=== PATIENT | male | born 1985 | race Caucasian/White ===

== ENCOUNTER 2019-02-20 19:29 | Emergency (ER) | payer OTHER, SELFPAY ==
--- NOTE | 2019-02-20 19:41 | DI.RAD.S_ITS ---
PROCEDURE: XR CHEST 1V INDICATIONS: chest pain TECHNIQUE: One view of the chest was acquired. COMPARISON: None. FINDINGS: Surgical changes and devices: None. Lungs and pleura: Lungs are clear. No pleural effusions or pneumothorax. Mediastinum: Mediastinal contours appear normal. Heart size is enlarged. Bones and chest wall: No suspicious bony lesions. Overlying soft tissues appear unremarkable. IMPRESSION: 1. No acute cardiopulmonary abnormality. 2. Cardiomegaly. Dictated by: Juan Thompson M.D. on 02/20/2019 at 20:07 Approved by: Juan Thompson M.D. on 02/20/2019 at 20:08
[2019-02-20 19:45] VITALS: BP 136/99; PULSE 57; RESP 12; TEMP 36.6; O2SAT 100; BMI 29.5
--- NOTE | 2019-02-20 20:09 | PC.NURSE ---
Pt has history of PVC's and wore a holter monitor and had echo in the past. States this feels different. I am almost certain I had a panic attack. States he has been dealing with a lot of stress lately and this episode hit him very suddenly while grocery shopping. Feels almost 100% improvement of symptoms. 0.5/10 chest tightness.
[2019-02-20 20:11] LABS: Add Manual Diff / Slide Review NO; Basophils Absolute Auto 0 /uL (0-100); Basophils Percent Auto 0.2 % (0-2); Eosinophils Absolute Auto 100 /uL (0-450); Eosinophils Percent Auto 1.8 % (2-4); Hematocrit 40.8 % (41-53); Hemoglobin 14.2 g/dL (13.5-17.5); Lymphocytes Absolute Auto 2500 /uL (1100-4500); Mean Corpuscular HGB Conc 34.8 % (30-36); Mean Corpuscular Hemoglobin 29.6 PG (26-34); Mean Corpuscular Volume 84.8 fL (80-100); Monocytes Absolute Auto 700 /uL (0-900); Monocytes Percent Auto 9.9 % (3-14); Neutrophils Absolute Auto 4000 /uL (1500-7000); Neutrophils Percent Auto 54.1 % (50-75); Platelet Count 167 X10^3/uL (150-400); Red Blood Cell Count 4.81 X10^6/uL (4.5-5.9); Red Cell Distribution Width 12.7 % (11.6-14.8); White Blood Cell Count 7.4 X10^3/uL (4.5-11.0)
[2019-02-20 20:15] LABS: INR 1.1 (0.9-1.3); Prothrombin Time 12.3 SECONDS (10.1-12.7)
[2019-02-20 20:18] LABS: PTT Partial Thromboplastin Tim 32 SECONDS (26.4-36.2)
[2019-02-20 20:20] LABS: Alanine Aminotransferase 37 IU/L (21-72); Albumin 4.6 g/dL (3.5-5.0); Albumin Globulin Ratio 1.6 (1.0-2.8); Alkaline Phosphatase 68 U/L (38-126); Aspartate Aminotransferase 39 IU/L (17-59); BUN Creatinine Ratio 18.9 (6-22); Bilirubin Total 1.5 mg/dL (0.2-1.3); Blood Urea Nitrogen 17 mg/dL (9-20); Calcium 9.5 mg/dL (8.4-10.2); Carbon Dioxide 25 mmol/L (22-32); Chloride 103 mmol/L (98-107); Creatine Kinase 501 U/L (55-170); Estimated Glomerular Filt Rate > 60.0 mL/min (>60); Globulin 2.9 g/dL (1.7-4.1); Glucose 83 mg/dL (70-100); HEMOLYSIS < 15 (0-50); Lipase 146 U/L (23-300); Potassium 3.6 mmol/L (3.4-5.1); Sodium 139 mmol/L (137-145); Total Protein 7.5 g/dL (6.3-8.2)
[2019-02-20 20:30] VITALS: BP 122/84; PULSE 63; RESP 22; O2SAT 95
[2019-02-20 20:31] LABS: Troponin I < 0.012 ng/mL (0.01-0.034)
[2019-02-20 20:35] LABS: CKMB % Relative Index 0.5 % (1.5-5.0); Creatine Kinase MB 2.33 ng/mL (<2.37)
--- NOTE | 2019-02-20 20:52 | ED_ITS ---
HPI - Chest Pain General Chief Complaint: Chest Pain Stated Complaint: CHEST PAIN Time Seen by Provider: 02/20/19 20:51 Source: patient Mode of arrival: Ambulatory Limitations: no limitations History of Present Illness HPI narrative: The patient was walking through a grocery store earlier today, if no obvious reason he developed sudden fear. He developed chest pain with dyspnea and diaphoresis. There was no dizziness or near-syncope type episode. He had nausea, no emesis. He has no history of cardiac disease. He has no history of asthma. He has no history of anxiety. He will be discharged from the [facility] in 3 days. He notes there may be a reason to feel anxious, he did not elaborate further. He denies recent illness. He is on no significant medications. He does not smoke tobacco, or use drugs. He does drink a little alcohol. He thinks there is a family history depression/anxiety. He feels well at this time. Review of Systems Review of Systems ROS Unobtainable: All systems reviewed & are unremarkable except as noted in HPI and below Constitutional Constitutional: Denies chills, Denies fever(s), Denies lethargy and Denies weakness Eyes Eyes: Denies change in vision ENT Ears, Nose, Mouth, and Throat: Denies change in voice and Denies neck pain Cardiovascular Cardiovascular: Reports chest pain, Denies irregular heart rhythm, Denies lightheadedness, Denies palpitations, Reports dyspnea and Denies orthopnea Respiratory Respiratory: Denies cough, Reports dyspnea and Denies wheezing Gastrointestinal Gastrointestinal: Denies abdominal pain, Denies change in bowel habits, Denies diarrhea, Reports nausea and Denies vomiting Musculoskeletal Musculoskeletal: Denies back pain and Denies neck pain Integumentary/Breasts Skin/Breast: Denies rash Neurologic Neurologic: Denies confusion and Denies weakness Psychiatric Psychiatric: Reports anxiety, Denies confusion and Denies depression Endocrine Endocrine: Denies palpitations Allergic/Immunologic Allergic/Immunologic: Denies wheezing [facility] Medical History (Updated 02/20/19 @ 21:14 by Dwayne Coleman MD) No acute medical problems (Acute) Surgical History (Updated 02/20/19 @ 21:08 by Dwayne Coleman MD) No pertinent past surgical history (Acute) Social History (Updated 02/20/19 @ 21:09 by Dwayne Coleman MD) Smoking Status: Former smoker alcohol intake: current substance use type: does not use Social History (Updated 02/20/19 @ 21:09 by Dwayne Coleman MD) Smoking Status: Former smoker alcohol intake: current substance use type: does not use Exam Initial Vital Signs Initial Vital Signs: Vital Signs Temperature 97.8 F 02/20/19 19:45 Pulse Rate 57 L 02/20/19 19:45 Respiratory Rate 12 02/20/19 19:45 Blood Pressure 136/99 H 02/20/19 19:45 Pulse Oximetry 100 02/20/19 19:45 Const General: cooperative and well developed Nutritional Appearance: well nourished Orientation: alert, awake, oriented x3 and not confused Other: No current anxiety. HENMT Head: normal to inspection, normocephalic and atraumatic Eyes Conjunctivae: conjunctivae normal Neck Neck: No JVD Chest Chest: normal palpation of entire chest wall Resp Effort & Inspection: normal respiratory effort and able to speak in complete sentences Auscultation: clear to auscultation bilaterally, no rales, no rhonchi and no wheezes Cardio Palpation: normal PMI Rate: regular rate Rhythm: regular rhythm Heart Sounds: S1 normal, S2 normal, no click, no gallops, no murmurs and no rubs GI Inspection: non-distended Palpation: soft, no hepatosplenomegaly, No guarding and No tender Auscultation: normal bowel sounds Back/Spine/Pelvis Back: normal to inspection Skin General: no rashes or lesions noted Neuro General: alert, oriented x3, gait normal and no focal motor deficits Speech: speech normal Extrem General: full ROM and no pedal edema Psych Appearance: well kempt Mental Status: mental status grossly normal Attitude: cooperative Thought Content: normal Judgment: judgment good Course Orders Ordered: ED Orders 02/20/19 19:33 EKG-12 Lead Stat 02/20/19 19:41 XR chest 1V Stat 02/20/19 20:00 Complete Blood Count AUTO DIFF Stat Comprehensive Metabolic Panel Stat Lipase Stat Partial Thromboplastin Time Stat Prothrombin Time INR Stat Troponin & CK Cardiac Panel Stat Vital Signs Vital signs: Vital Signs - 8 hr 02/20/19 19:45 02/20/19 20:30 Temperature 97.8 F Pulse Rate 57 L 63 Respiratory Rate 12 22 Blood Pressure 136/99 H Blood Pressure [Right Arm] 122/84 Pulse Oximetry 100 95 MDM - Chest Pain Lab Data Result diagrams: 02/20/19 20:00 02/20/19 20:00 Labs: Lab Results 02/20/19 02/20/19 02/20/19 Range/Units 20:00 20:00 20:00 WBC 7.4 (4.5-11.0) X10^3/uL RBC 4.81 (4.5-5.9) X10^6/uL Hgb 14.2 (13.5-17.5) g/dL Hct 40.8 L (41-53) % MCV 84.8 (80-100) fL MCH 29.6 (26-34) PG MCHC 34.8 (30-36) % RDW 12.7 (11.6-14.8) % Plt Count 167 (150-400) X10^3/uL Neut % (Auto) 54.1 (50-75) % Lymph % (Auto) 34.0 (25-40) % Fulton % (Auto) 9.9 (3-14) % Eos % (Auto) 1.8 L (2-4) % Baso % (Auto) 0.2 (0-2) % Neut # (Auto) 4000 (6988-8629) /uL Lymph # (Auto) 2500 (7265-3954) /uL Fulton # (Auto) 700 (0-900) /uL Eos # (Auto) 100 (0-450) /uL Baso # (Auto) 0 (0-100) /uL PT 12.3 (10.1-12.7) SECONDS INR 1.1 (0.9-1.3) APTT 32 (26.4-36.2) SECONDS Sodium 139 (137-145) mmol/L Potassium 3.6 (3.4-5.1) mmol/L Chloride 103 (98-107) mmol/L Carbon Dioxide 25 (22-32) mmol/L BUN 17 (9-20) mg/dL Creatinine 0.90 (0.66-1.25) mg/dL Estimated GFR > 60.0 (>60) mL/min BUN/Creatinine Ratio 18.9 (6-22) Glucose 83 (70-100) mg/dL Calcium 9.5 (8.4-10.2) mg/dL Total Bilirubin 1.5 H (0.2-1.3) mg/dL AST 39 (17-59) IU/L ALT 37 (21-72) IU/L Alkaline Phosphatase 68 (38-126) U/L Total Creatine Kinase 501 H (55-170) U/L CK-MB (CK-2) 2.33 (<2.37) ng/mL CK-MB (CK-2) Rel Index 0.5 L (1.5-5.0) % Troponin I < 0.012 (0.01-0.034) ng/mL Total Protein 7.5 (6.3-8.2) g/dL Albumin 4.6 (3.5-5.0) g/dL Globulin 2.9 (1.7-4.1) g/dL Albumin/Globulin Ratio 1.6 (1.0-2.8) Lipase 146 (23-300) U/L Point of Care Testing Glucose POC 90 Imaging Data Chest x-ray: Radiologist's impression: 77 Dwayne Coleman MD Find Patient Imaging - Jignesh Zaldivar 34 1985 ACTIVITY DATE EXAM STATUS AUTHOR 02/20/19 19:41 [place] [address] XRay Report Signed Patient: Jignesh Zaldivar [facility]#: [id number] : 1985Acct:[id number] Age/Sex: 34 / MDate of Service: 02/20/19 Loc: ED Accession Number: [id number] Procedure: XR chest 1V Ordering Provider: Dwayne Coleman MD PROCEDURE: XR CHEST 1V INDICATIONS: chest pain TECHNIQUE: One view of the chest was acquired. COMPARISON: None. FINDINGS: Surgical changes and devices: None. Lungs and pleura: Lungs are clear. No pleural effusions or pneumothorax. Mediastinum: Mediastinal contours appear normal. Heart size is enlarged. Bones and chest wall: No suspicious bony lesions. Overlying soft tissues appear unremarkable. IMPRESSION: 1. No acute cardiopulmonary abnormality. 2. Cardiomegaly. Dictated by: Juan Thompson M.D. on 02/20/2019 at 20:07 Approved by: Juan Thompson M.D. on 02/20/2019 at 20:08 ECG Data Attestation: I personally reviewed and interpreted this ECG as follows: Interpretation: Sinus bradycardia rate 48 beats per minute. Incomplete RBBB. No ectopy. No acute ST T wave changes. No acute findings. Discharge Plan Departure Patient Disposition: Home Clinical Impression: Anxiety Instructions: DI for Anxiety -- Adult Activity Restrictions/Additional Instructions: From the evaluation there is no evidence of cardiac, respiratory, or other acute medical problem. The history and presentation is most consistent with anxiety. If you have ongoing issues anxiety, follow up with her own doctor for ongoing care. Return to the ER as needed.
[2019-02-20 21:23] VITALS: BP 121/84; PULSE 50; RESP 19; O2SAT 98
== END 2019-02-20 21:24 | disposition home or self-care (01) ==
PROVIDERS: Emergency Provider Emergency Medicine
DX: F41.9 Anxiety disorder, unspecified (principal)
CPT/HCPCS: 36415; 71045; 80053; 82550; 82553; 82962; 83690; 84484; 85025; 85610; 85730; 93005; 93010; 99283; 99285

== ENCOUNTER → 2019-03-30 07:47 | Outpatient (CLI) | payer OTHER, SELFPAY ==
--- NOTE | 2019-03-30 | DI.ECHO.S_ITS ---
[facility]---------+ [facility] +---------+ : : [address] : : : : [id number] : : : : Phone: [phone] Echocardiogram Report + + :Name: DULCE FAJARDO Study Date: 03/30/2019 Height: 74 in : :[facility] Weight: 230 lb : : Gender: Male BSA: 2.3 m2 : :: 1985 Age: 34 yrs BP: 110/70 mmHg: :Reason For Study: QTC : : Performed By: Magalis Woodson : :Referring: JANES FOSS : + + Interpretation Summary The left ventricle is mildly dilated. Left ventricular ejection fraction is estimated to be 50%. There are no focal wall motion abnormalities. Diastolic parameters suggest probable normal left ventricular diastolic function and normal filling pressures. The right ventricle is mildly dilated. Right ventricular systolic function is borderline reduced. The right ventricular systolic pressure is estimated to be at least 23 mmHg based on an estimated right atrial pressure of 8 mm Hg. Borderline left atrial enlargement. The right atrium is mildly dilated. There is no significant valvular heart disease. The aortic root is normal size. Procedure: A two-dimensional transthoracic echocardiogram with color flow and Doppler was performed. The study quality was technically good. There is no prior echocardiogram noted for this patient. The heart rate ranged between 40- 53 bpm during the study. Left Ventricle: The left ventricle is mildly dilated. There is normal left ventricular wall thickness. Left ventricular ejection fraction is estimated to be 50%. There are no focal wall motion abnormalities. Diastolic parameters suggest probable normal left ventricular diastolic function and normal filling pressures. Right Ventricle: The right ventricle is mildly dilated. Right ventricular systolic function is borderline reduced. Atria: Borderline left atrial enlargement. The right atrium is mildly dilated. The interatrial septum is intact with no evidence for an atrial septal defect. Mitral Valve: The mitral valve is normal in structure and function. There is no mitral regurgitation noted. Aortic Valve: The aortic valve is trileaflet. The aortic valve opens well. No aortic regurgitation is present. Tricuspid Valve: The tricuspid valve is normal in structure and function. There is trace tricuspid regurgitation. The right ventricular systolic pressure is estimated to be at least 23 mmHg based on an estimated right atrial pressure of 8 mm Hg. Pulmonic Valve: The pulmonic valve is normal in structure and function. There is trace pulmonic regurgitation. There is no significant valvular heart disease. Great Vessels: The aortic root is normal size. The dimensions of the ascending aorta are normal. The aortic arch is normal in size. The IVC is dilated (diameter is greater than 2.1 cm) yet it collapses greater than 50% with a sniff. This suggests a right atrial pressure of 8 mm Hg. Pericardium/ Pleura There is no pericardial effusion. There is no pleural effusion. MMode/2D Measurements & Calculations LVIDd: 6.1 cm Ao root diam: 3.4 cm LVIDs: 3.8 cm Aortic Jxn: 2.8 cm FS: 38.1 % asc Aorta Diam: 3.5 cm EPSS: 0.62 cm Ao Arch Diam (Prox Trans): 3.1 cm IVSd: 0.82 cm LVPWd: 1.0 cm LV zhao. diameter/BSA (cm/m^2): 2.6 LV sys. diameter/BSA (cm/m^2): 1.6 LA dimension: 4.3 cm RA long axis: 5.7 cm LA A2 area: 24.6 cm2 RA area: 24.8 cm2 LA A4 area: 22.7 cm2 RA vol: 91.7 ml LA length (vol): 6.0 cm RA : 39.7 ml/m2 LA vol: 78.6 ml IVC diam: 2.4 cm LA vol index: 34.1 ml/m2 RVDd major: 9.2 cm RVD1 (basal): 4.5 cm RVD2 (mid): 3.5 cm Doppler Measurements & Calculations Ao V2 max: 135.1 cm/sec MV E max gabe: 79.4 cm/sec Ao V2 mean: 92.4 cm/sec MV A max gabe: 49.8 cm/sec Ao max P.3 mmHg MV E/A: 1.6 Ao mean P.9 mmHg Med Peak E' Gabe: 8.6 cm/sec Ao V2 VTI: 30.7 cm E/E' med: 9.2 Lat Peak E' Gabe: 13.8 cm/sec E/E' lat: 5.8 E/e' average: 7.5 MV dec time: 0.24 sec MV P1/2t: 72.3 msec TR max gabe: 193.8 cm/sec MV P1/2t max gabe: 80.5 cm/sec TR max P.0 mmHg MVA(P1/2t): 3.0 cm2 PA V2 max: 73.5 cm/sec PA V2 mean: 45.6 cm/sec PA mean P.00 mmHg PA Accel Time: 0.19 sec Reading Physician:03:25 PM
== END ==
PROVIDERS: Visit Provider Physician Assistant
DX: R00.2 Palpitations (principal)
CPT/HCPCS: 93306

== ENCOUNTER 2019-12-17 18:00 | Observation (INO) | payer OTHER, SELFPAY ==
[2019-12-17] VITALS (10 sets, daily range): BP systolic 116–134; BP diastolic 69–88; PULSE 49–81; RESP 3–19; TEMP 36.9; O2SAT 96–99; BMI 30.8
--- NOTE | 2019-12-17 21:00 | ED_ITS ---
HPI - Neuro Symptoms/Deficit General Chief Complaint: Neuro Symptoms/Deficit Stated Complaint: NUMBNESS OF LEFT ARM Time Seen by Provider: 12/17/19 21:00 Source: patient Mode of arrival: Family Vehicle Limitations: no limitations History of Present Illness HPI Narrative: Otherwise healthy 34-year-old gentleman woke up at 930 am and noted Left arm/shoulder (deltoid area) down to forearm numb, and pain in the right neck that is now resolved. He and his fiancee got up he assumed that the arm numbness was a positional thing from sleeping and was able to go for a 2 mi run without complications morning. Over the course of the day he noticed of cognitive difficulty in terms of a composing thoughts. He noticed while he was riding a paper that he would go back to reread what he road and it did not make any sense. He also noted that using his left hand he had much more difficulty texting. Once in the emergency room his exam revealed numbness on the left side of his face and around his ear as well as mild ataxia with the use of the left hand and weakness in the left leg. On Anticoagulants: No Related Data Allergies Allergy/AdvReac Type Severity Reaction Status Date / Time No Known Drug Allergies Allergy Verified 12/17/19 18:25 Review of Systems Review of Systems Narrative: Pertinent positive and negative findings as per HPI Remainder of review of systems is otherwise unremarkable for Constitutional: Fevers, chills, weakness ENT: No sore throat, neck pain, ear pain CV: Chest pain, palpitations, dyspnea on exertion Respiratory: Cough, wheeze, dyspnea GI: Nausea, vomiting, diarrhea, change in bowel habits, black or bloody stools : Dysuria, hematuria, flank pain MS: Muscle weakness, numbness, joint swelling or warmth Neuro: Syncope, dizziness, tingling Endocrine: Fatigue, heat or cold intolerance, Heme: Easy bruising or bleeding Patient History Medical History Bradycardia (Acute) Surgical History No pertinent past surgical history (Acute) Social History household members: significant other Smoking Status: Former smoker alcohol intake: current substance use type: does not use Smoking Status: Former smoker alcohol intake frequency: holidays/special occasions only Substance Use Type: does not use Exam Narrative Exam Narrative: General: Healthy appearing, in no acute distress. Able to give a complete and coherent history. Well-nourished well-developed HEENT: Moist mucous membranes, normal sclera with reactive pupils, Neck: No JVD, supple Respiratory: Lungs are clear to auscultation, no wheezing no rales no rhonchi. Full and symmetrical air movement Cardiac: Regular rate and rhythm no murmurs no bruits Abdomen: Soft nontender good bowel tones, no flank pain Skin: Warm and dry, no rashes Neurologic: Decreased sensation to the left side of his face and left ear. Ataxia with his left hand. Numbness over the left deltoid area. Difficulty standing a balancing on the left leg. Slightly slowed speech and complaints of difficulty with thinking. Extremities: No trauma, well perfused Psych: Cooperative, appropriate insight and affect NIH Stroke Scale/Score (NIHSS) from [email or web address] on 12/17/2019 RESULT SUMMARY: 4 points NIH Stroke Scale INPUTS: 1A: Level of consciousness ?> 0 = Alert; keenly responsive 1B: Ask month and age ?> 0 = Both questions right 1C: 'Blink eyes' & 'squeeze hands' ?> 0 = Performs both tasks 2: Horizontal extraocular movements ?> 0 = Normal 3: Visual antunez ?> 0 = No visual loss 4: Facial palsy ?> 0 = Normal symmetry 5A: Left arm motor drift ?> 0 = No drift for 10 seconds 5B: Right arm motor drift ?> 0 = No drift for 10 seconds 6A: Left leg motor drift ?> 0 = No drift for 5 seconds 6B: Right leg motor drift ?> 1 = Drift, but doesn't hit bed 7: Limb Ataxia ?> 1 = Ataxia in 1 Limb 8: Sensation ?> 1 = Mild-moderate loss: less sharp/more dull 9: Language/aphasia ?> 1 = Mild-moderate aphasia: some obvious changes, without significant limitation 10: Dysarthria ?> 0 = Normal 11: Extinction/inattention ?> 0 = No abnormality Initial Vital Signs Initial Vital Signs: Vital Signs Temperature 98.4 F 12/17/19 18:19 Pulse Rate 72 12/17/19 18:19 Respiratory Rate 18 12/17/19 18:19 Blood Pressure 124/75 12/17/19 18:19 Pulse Oximetry 98 12/17/19 18:19 Course Orders Ordered: ED Orders 12/17/19 21:02 CT Stroke Stat 12/17/19 21:03 CT angio head and neck Stat 12/17/19 21:11 EKG-12 Lead Stat 12/17/19 21:25 Basic Metabolic Panel Stat Complete Blood Count AUTO DIFF Stat Partial Thromboplastin Time Stat Prothrombin Time INR Stat Acetaminophen (Tylenol) 650 mg PO Q6HR PRN PRN Reason: Fever/Mild Pain (1-3) Aspirin (Aspirin Ec) 81 mg PO DAILY [facility] Atorvastatin Calcium (Lipitor) 20 mg PO BEDTIME [facility] Bisacodyl (Dulcolax) 10 mg OH DAILY PRN PRN Reason: Constipation Enoxaparin Sodium (Lovenox) 40 mg SUBCUT DAILY [facility] Naloxone HCl (Narcan) 0.2 mg IV Q2MIN PRN PRN Reason: Opiate Reversal Ondansetron HCl (Zofran) 4 mg IV Q8HR PRN PRN Reason: Nausea And Vomiting Discontinued Medications Aspirin (Aspirin Chew) 324 mg PO NOW ONE Stop: 12/18/19 00:16 Last Admin: 12/18/19 00:20 Dose: 324 mg Documented by: JOSAFATN Sodium Chloride (Normal Saline 0.9%) 1,000 mls @ 150 mls/hr IV CONT [facility] Last Admin: 12/18/19 01:19 Dose: 150 mls/hr Documented by: Infusion: 12/18/19 01:19 Dose: 150 mls/hr Documented by: Admin: 12/17/19 22:33 Dose: 150 mls/hr Documented by: [email or web address] Sodium Chloride (Normal Saline 0.9%) 1,000 mls @ 100 mls/hr IV CONT [facility]I Last Admin: 12/18/19 02:23 Dose: Not Given Documented by: HUMA Vital Signs Vital signs: Vital Signs - 8 hr 12/17/19 21:30 12/17/19 22:13 12/17/19 22:22 Pulse Rate 66 81 67 Respiratory Rate 16 19 Blood Pressure 134/80 Pulse Oximetry 96 97 98 12/17/19 22:30 12/17/19 23:00 12/17/19 23:30 Pulse Rate 72 65 62 Respiratory Rate 6 L 3 L 13 Blood Pressure 129/79 116/69 134/81 Pulse Oximetry 98 98 12/18/19 00:00 Pulse Rate 60 Respiratory Rate 8 L Blood Pressure 117/70 Pulse Oximetry 97 MDM - Neuro Symptoms/Deficit Medical Records Attestation: I reviewed the patient's medical records. Lab Data Attestation: I reviewed the patient's lab results. Result diagrams: 12/17/19 21:25 12/17/19 21:25 Labs: Lab Results 12/17/19 12/17/19 12/17/19 Range/Units 21:25 21:25 21:25 WBC 9.8 (4.5-11.0) X10^3/uL RBC 5.01 (4.5-5.9) X10^6/uL Hgb 14.7 (13.5-17.5) g/dL Hct 42.5 (41-53) % MCV 84.8 (80-100) fL MCH 29.3 (26-34) PG MCHC 34.5 (30-36) % RDW 13.0 (11.6-14.8) % Plt Count 180 (150-400) X10^3/uL Neut % (Auto) 62.3 (50-75) % Lymph % (Auto) 28.6 (25-40) % Vance % (Auto) 6.9 (3-14) % Eos % (Auto) 1.9 L (2-4) % Baso % (Auto) 0.3 (0-2) % Neut # (Auto) 6100 (1330-1012) /uL Lymph # (Auto) 2800 (0558-2395) /uL Vance # (Auto) 700 (0-900) /uL Eos # (Auto) 200 (0-450) /uL Baso # (Auto) 0 (0-100) /uL PT 11.8 (10.1-12.7) SECONDS INR 1.0 (0.9-1.3) APTT 32 (26.4-36.2) SECONDS Sodium 139 (137-145) mmol/L Potassium 4.3 (3.4-5.1) mmol/L Chloride 104 (98-107) mmol/L Carbon Dioxide 29 (22-32) mmol/L BUN 16 (9-20) mg/dL Creatinine 1.15 (0.66-1.25) mg/dL Estimated GFR > 60.0 (>60) mL/min BUN/Creatinine Ratio 13.9 (6-22) Glucose 89 (70-100) mg/dL Calcium 9.7 (8.4-10.2) mg/dL Phosphorus (2.5-4.5) mg/dL COVID-19 PCR (Negative) 12/17/19 12/17/19 Range/Units 21:25 22:27 WBC (4.5-11.0) X10^3/uL RBC (4.5-5.9) X10^6/uL Hgb (13.5-17.5) g/dL Hct (41-53) % MCV (80-100) fL MCH (26-34) PG MCHC (30-36) % RDW (11.6-14.8) % Plt Count (150-400) X10^3/uL Neut % (Auto) (50-75) % Lymph % (Auto) (25-40) % Vance % (Auto) (3-14) % Eos % (Auto) (2-4) % Baso % (Auto) (0-2) % Neut # (Auto) (1820-4428) /uL Lymph # (Auto) (5412-8987) /uL Vance # (Auto) (0-900) /uL Eos # (Auto) (0-450) /uL Baso # (Auto) (0-100) /uL PT (10.1-12.7) SECONDS INR (0.9-1.3) APTT (26.4-36.2) SECONDS Sodium (137-145) mmol/L Potassium (3.4-5.1) mmol/L Chloride (98-107) mmol/L Carbon Dioxide (22-32) mmol/L BUN (9-20) mg/dL Creatinine (0.66-1.25) mg/dL Estimated GFR (>60) mL/min BUN/Creatinine Ratio (6-22) Glucose (70-100) mg/dL Calcium (8.4-10.2) mg/dL Phosphorus 4.3 (2.5-4.5) mg/dL COVID-19 PCR Negative (Negative) Urine Dip Bedside Urine Glucose Negative Bedside Urine Bilirubin - Negative Bedside Urine Ketone - Negative Urine Specific Lohman 1.015 Bedside Urine Occult Blood - Negative Bedside Urine pH 6.0 Bedside Urine Protein +/- 15 Bedside Urine Urobilinogen - Negative Bedside Urine Nitrite - Negative Bedside Urine Leukocytes - Negative Esterase ECG Data Attestation: I personally reviewed and interpreted this ECG as follows: MDM Narrative Medical decision making narrative: Subtle signs of left-sided deficits but c learly still present with mild cognitive deficits appreciated as well. Care is reviewed with Dr. Ximena Lowe, [facility] neurologist. In light of normal CT and normal CT a she did not feel like there was added benefit to transfer to [facility]. She did feel that admission for stroke evaluation was appropriate with brain MRI with and without to be completed as soon as available. Care is reviewed with Jignesh and he is amenable to hospital admission. Will talk with our hospitalist service Due to unknown time of onset and mild symptoms with an NIH score of only for patient is not a tPA candidate Discharge Plan Departure Patient Disposition: Admitted As Inpatient Clinical Impression: Stroke Qualifiers: CVA mechanism: unspecified Qualified Code(s): I63.9 - Cerebral infarction, unspecified Discharge Date/Time: 12/18/19 00:10 Admit Date/Time: 12/18/19 00:09 Admit Provider: Yasir Jorgensen
--- NOTE | 2019-12-17 21:02 | DI.CT.S_ITS ---
PROCEDURE: CT STROKE INDICATIONS: any evidence LVO inconsideration of intervetion, non TPA TECHNIQUE: Noncontrast 4.5 mm thick angled axial sections acquired from the foramen magnum to the vertex, with coronal reformats. For radiation dose reduction, the following was used: automated exposure control, adjustment of mA and/or kV according to patient size. COMPARISON: None. FINDINGS: Image quality: Excellent. CSF spaces: Basal cisterns are patent. No extra-axial fluid collections. Ventricles are normal in size and shape. Brain: No midline shift. No intracranial masses or hemorrhage. Mayes-white matter interface is normal. Skull and face: Calvarium and visualized facial bones are intact, without suspicious lesions. Sinuses: Visualized sinuses and mastoids are clear. IMPRESSION: No acute intracranial disease process. Findings telephoned to Dr. Kennedi Moore on December 17, 2019 at 9:57 p.m.. This study fulfills neurological imaging criteria for inclusion or exclusion of acute stroke therapies based on available published neurological imaging guidelines. Dictated by: Aiyana Mauricio MD, PhD on 12/17/2019 at 21:57 Approved by: Aiyana Mauricio MD, PhD on 12/17/2019 at 21:59
--- NOTE | 2019-12-17 21:03 | DI.CT.S_ITS ---
PROCEDURE: CT ANGIO HEAD AND NECK INDICATIONS: any evidence LVO inconsideration of intervetion TECHNIQUE: Pre-contrast 4.5 mm thick sections acquired from the foramen magnum to the vertex. After the administration of intravenous contrast, 1 mm thick sections acquired from the aortic arch through the [place] of [place]. Post-contrast 4.5 mm thick sections then re-acquired from the foramen magnum to the vertex. 3-dimensional jpjzugl-frkqpnfgv-yuvdraiouu (MIP) and/or volume rendering reformats were acquired of the central intracranial vasculature and neck separately. COMPARISON: [facility], CT, CT STROKE, 12/17/2019, 21:39. FINDINGS: Image quality: Excellent. BRAIN: CSF spaces: Ventricles are normal in size and shape. Basal cisterns are patent. No extra-axial fluid collections. Brain: No midline shift. No intracranial bleeds or masses. Mayes-white matter interface appears intact. Skull and face: Calvarium and facial bones appear intact, without suspicious lesions. Orbits appear normal. Sinuses: Sinuses and mastoids are clear. HEAD CT ANGIOGRAPHY: Anterior circulation: Intracranial internal carotid arteries are normal in size and flow. The flow within the paired anterior cerebral arteries is normal and symmetric. The flow within the middle cerebral arteries is normal and symmetric. The anterior communicating artery is seen. No aneurysms are seen. Posterior circulation: Visualized portions of the vertebral arteries demonstrate normal caliber, and join to form a normal appearing basilar artery. Flow within the posterior cerebral arteries is normal and symmetric. No aneurysms are seen. Dural sinuses demonstrate normal postcontrast enhancement. NECK CT ANGIOGRAPHY: Carotid system: The great vessels demonstrate a conventional anatomy as they arise from the aortic arch. The origins of the common carotid arteries appear patent. The common carotid arteries demonstrate normal caliber and courses. The bifurcation regions are both widely patent. The internal carotid arteries demonstrate normal calibers and courses. Posterior circulation: The origins of the vertebral arteries both appear widely patent. The more superior extracranial portions of both vertebral arteries also demonstrate normal courses and calibers. They join to form a normal appearing basilar artery. Soft tissues: Visualized neck soft tissues demonstrate no suspicious abnormalities. Bones: No suspicious bony lesions. Visualized cervical spine appears normally aligned. IMPRESSION: 1. No acute intracranial disease process. 2. No large vessel occlusion, vascular stenosis, vascular dissection or aneurysm. Any quantitative measurements of stenosis were performed using NASCET criteria. Dictated by: Aiyana Mauricio MD, PhD on 12/18/2019 at 7:48 Approved by: Aiyana Mauricio MD, PhD on 12/18/2019 at 8:17
--- NOTE | 2019-12-17 21:14 | PC.NURSE ---
Patient went to sleep last night and woke up this morning around 0930 am and noticed that his left shoulder and forearm are numb and have not returned sensation. Upon his NIH he noticed that his left face was numb. He had a difficult time recalling words to express concepts in pictures. His fiance says that his words are studdering and coming out slower than usual. He has no horizontal gaze palsey, vision loss, limb weakness, or focal deficits other than numbness and slight expressive aphasia.
[2019-12-17 21:35] LABS: Add Manual Diff / Slide Review NO; Basophils Absolute Auto 0 /uL (0-100); Basophils Percent Auto 0.3 % (0-2); Eosinophils Absolute Auto 200 /uL (0-450); Eosinophils Percent Auto 1.9 % (2-4); Hematocrit 42.5 % (41-53); Hemoglobin 14.7 g/dL (13.5-17.5); Lymphocytes Absolute Auto 2800 /uL (1100-4500); Lymphocytes Percent Auto 28.6 % (25-40); Mean Corpuscular HGB Conc 34.5 % (30-36); Mean Corpuscular Hemoglobin 29.3 PG (26-34); Mean Corpuscular Volume 84.8 fL (80-100); Monocytes Absolute Auto 700 /uL (0-900); Monocytes Percent Auto 6.9 % (3-14); Neutrophils Absolute Auto 6100 /uL (1500-7000); Neutrophils Percent Auto 62.3 % (50-75); Platelet Count 180 X10^3/uL (150-400); Red Blood Cell Count 5.01 X10^6/uL (4.5-5.9); White Blood Cell Count 9.8 X10^3/uL (4.5-11.0)
[2019-12-17 21:39] LABS: Prothrombin Time 11.8 SECONDS (10.1-12.7)
[2019-12-17 21:42] LABS: PTT Partial Thromboplastin Tim 32 SECONDS (26.4-36.2)
[2019-12-17 21:44] LABS: BUN Creatinine Ratio 13.9 (6-22); Blood Urea Nitrogen 16 mg/dL (9-20); Calcium 9.7 mg/dL (8.4-10.2); Carbon Dioxide 29 mmol/L (22-32); Chloride 104 mmol/L (98-107); Estimated Glomerular Filt Rate > 60.0 mL/min (>60); Glucose 89 mg/dL (70-100); HEMOLYSIS < 15 (0-50); Potassium 4.3 mmol/L (3.4-5.1); Sodium 139 mmol/L (137-145)
[2019-12-17] MEDS: SODIUM CHLORIDE 0.9% 1,000 ML 150 ML IV (22:33)
--- NOTE | 2019-12-17 23:17 | PC.NURSE ---
Patient's Blood glucose was taken and it was around 50. He was given cheese, pnut butter with crackers, oj, apple juice, his glucose was taken again and it was around 100. The deficits that were notited in the NIH that were originally noted were reassessed and he stated that he had slightly less numbness on his left cheek but not much change.
[2019-12-18] VITALS (9 sets, daily range): BP systolic 115–124; BP diastolic 56–76; PULSE 47–75; RESP 8–22; TEMP 36.1–36.5; O2SAT 97–99; BMI 30.8
[2019-12-18] MEDS: ASPIRIN 81 MG CHEW TAB 324 MG PO (00:20)
--- NOTE | 2019-12-18 00:21 | DI.MRI.S_ITS ---
PROCEDURE: MR STROKE Pre- and post-contrast brain MRI, non-contrast brain MR angiogram, pre- and postcontrast neck MR angiogram INDICATIONS: Stroke symptoms TECHNIQUE: Brain: Noncontrast axial T1 spin echo, axial T2 fast spin echo, sagittal and axial FLAIR, coronal T2 fast spin echo, axial gradient echo, axial diffusion and ADC through the brain. After the administration of contrast, axial 3D VIBE of the cranial vasculature and brain. Brain MRA: Non-contrast 3-D time of flight MR angiogram, with multiple tuvabnm-qpllpfcvy-lzagklnstg (MIP) reformats performed. Neck MRA: Axial and sagittal TruFISP through the neck. Coronal dynamic MR angiogram during administration of contrast in the arterial and venous phases, with 3-dimenstional ojthnpj-zeqduhfyg-lgmuncjfgz (MIP) reformats constructed from subtraction images. COMPARISON: [facility], CT, CT ANGIO HEAD AND NECK, 12/17/2019, 21:45. [facility], CT, CT STROKE, 12/17/2019, 21:39. FINDINGS: Image quality: Excellent. BRAIN: CSF spaces: Ventricles are normal in size and shape. Basal cisterns are patent. No extra-axial fluid collections. Brain: No intracranial bleeds or mass effects. Mayes-white matter interface is normal. Diffusion weighted images show no acute ischemic insults. Brainstem appears normal. Normal intravascular flow voids are present. No abnormal intracranial enhancement. Skull and face: Calvarial marrow signal is normal. Orbits appear normal. Sinuses: Sinuses and mastoids are clear. BRAIN MR ANGIOGRAM: Anterior circulation: Intracranial internal carotid arteries are normal in size and enhancement. The flow within the paired anterior cerebral arteries is normal and symmetric. The flow within the middle cerebral arteries is normal and symmetric. The anterior communicating artery is seen. No stenoses, occlusions, or aneurysms. Posterior circulation: The visualized portions of the vertebral arteries demonstrate normal caliber, and join to form a normal appearing basilar artery. The flow within the posterior cerebral arteries is normal and symmetric. No stenoses, occlusions, or aneurysms. NECK MR ANGIOGRAM: Carotids: Great vessels demonstrate a conventional anatomy as they arise from the aortic arch. The origins of the common carotid arteries appear patent. The calibers and courses of both common carotid arteries are normal. The bifurcation regions appear normal bilaterally. The internal carotid arteries demonstrate normal course and caliber. Posterior circulation: The origins of the vertebral arteries appear patent. More superior portions of both vertebral arteries demonstrate normal course and caliber, and join to form a normal appearing basilar artery. Miscellaneous: Subclavian arteries appear patent. Pre-contrast images through the neck show no soft tissue abnormalities. IMPRESSION: BRAIN MRI: 1. No intracranial disease process. 2. No areas of acute or chronic infarction. 3. No abnormal intracranial mass or mass effect. 4. No suspicious postcontrast enhancement. BRAIN MR ANGIOGRAM: Negative examination. NECK MR ANGIOGRAM: Negative examination. Dictated by: Aiyana Mauricio MD, PhD on 12/18/2019 at 16:08 Approved by: Aiyana Mauricio MD, PhD on 12/18/2019 at 16:13
--- NOTE | 2019-12-18 00:30 | PC.NURSE ---
Tried to call report X2 will be called back @[phone]
[2019-12-18 00:44] LABS: COVID19 -Nasal RAPID Negative (Negative)
[2019-12-18 00:54] LABS: Phosphorous 4.3 mg/dL (2.5-4.5)
[2019-12-18] MEDS: SODIUM CHLORIDE 0.9% 1,000 ML 150 ML IV (01:19)
--- NOTE | 2019-12-18 01:54 | P.HP_ITS ---
History of Present Illness History of Present Illness Date Patient Seen: 12/18/19 Time Patient Seen: 01:35 Chief complaint: NUMBNESS OF LEFT ARM Narrative: Mr. Jignesh Drake is a 34-year-old right handed male with a past medical history only significant for bradycardia for which he has had a full cardiac workup presents to the ER for left arm and facial numbness. The patient states that he woke approximately 930 this morning complaining of complete numbness of his left arm from his shoulder to his elbow. He attributed this to just sleeping on it wrong and perceived to go 482 mi run that was uneventful. Later the patient noticed cognitive difficulty, he was doing schoolwork writing a paper that on reading at over made no sense. He was also having difficulty texting. He describes the cognitive impairment as waxing and waning well the numbness to his left arm had been persistent and had developed numbness of the lateral left face and jaw. Patient also reports developing ataxia with some left leg weakness. The patient has not experienced any similar symptoms previously and has no antecedent complaints of headaches, visual changes, nausea or diaphoresis and has had no trauma or falls or toxic exposures. He denies complaints nasal congestion or sore throat. He reports no neck or back pain. Denies chest pain or palpitations and has a history of bradycardia which is been evaluated with a stress test, Holter, echocardiogram and told he has what sounds to be sinus arrhythmia with PVCs. He has no epigastric or abdominal pain, nausea vomiting, diarrhea or constipation. He reports no urinary difficulties. Upon arrival to the ER he has temperature of 98.4?, heart rate 72, blood pressure 124/75, respirations of 18 saturating 99% on room air. Imaging is obtained with a CT and a CTA both fine no acute intracranial processes. On laboratory analysis has a normal white count at 9.8, hemoglobin of 14.7, hematocrit of 42.5 and platelets of 180. He has a PT of 11.8, INR of 1.0 and a PTT of 32. His electrolytes are all within normal limits with a BUN of 16 and creatinine 1.15. His nonfasting glucose is 89. Patient's case is discussed with [place] stroke team who felt the patient was appropriate for admission and [facility]. He has received normal saline IV and administered aspirin 324 mg. The patient is admitted to the medicine team for stroke-like symptoms for further evaluation workup. Patient History Medical History (Updated 12/18/19 @ 02:15 by DAVID Sidhu) Bradycardia (Acute) Surgical History (Updated 02/20/19 @ 21:08 by Dwayne Coleman MD) No pertinent past surgical history (Acute) Family & Social History Safety & Behavioral: Feels Safe in Current Yes Environment Been Physically Hurt or No Threatened By a Person Tobacco & Substance use: Smoking Status Former smoker alcohol intake current alcohol intake frequency holiday/special occasion Substance Use Type does not use Meds Home Medications and Allergies Allergies Allergy/AdvReac Type Severity Reaction Status Date / Time No Known Drug Allergies Allergy Verified 12/17/19 18:25 Review of Systems Review of Systems ROS: Yes All systems reviewed with the patient and are negative except as otherwise documented Exam Vital Signs (past 8 hours): - 12/17/19 18:19 12/17/19 20:28 12/17/19 20:30 Temperature 98.4 F Pulse Rate 72 49 L 49 L Respiratory Rate 18 Blood Pressure 124/75 129/77 121/72 Pulse Oximetry 98 99 98 12/17/19 21:00 12/17/19 21:30 12/17/19 22:13 Temperature Pulse Rate 68 66 81 Respiratory Rate 16 Blood Pressure 125/88 Pulse Oximetry 99 96 97 12/17/19 22:22 12/17/19 22:30 12/17/19 23:00 Temperature Pulse Rate 67 72 65 Respiratory Rate 19 6 L 3 L Blood Pressure 134/80 129/79 116/69 Pulse Oximetry 98 98 12/17/19 23:30 12/18/19 00:00 12/18/19 00:30 Temperature Pulse Rate 62 60 65 Respiratory Rate 13 8 L 22 Blood Pressure 134/81 117/70 121/75 Pulse Oximetry 98 97 97 12/18/19 00:48 12/18/19 01:00 Temperature 97.1 F L Pulse Rate 63 48 L Respiratory Rate 18 18 Blood Pressure 121/75 121/56 L Pulse Oximetry 97 99 Oxygen Delivery Method Room Air Oxygen Flow Rate 0 Narrative Exam Narrative: GENERAL APPEARANCE: well developed, well nourished, in no acute distress. HEENT: Normocephalic, PERRLA, conjunctiva clear, EOMs intact without nystagmus, no sinus tenderness to percussion, no rhinorrhea, mucous membranes are moist and pink without lesions or exudate. NECK/THYROID: neck supple, no JVD, no carotid bruit, no thyromegaly, trachea midline. LYMPH NODES: no cervical or supraclavicular lymphadenopathy. SKIN: [place], warm and dry, no visible lesions, rashes, ulcerations or petechiae. HEART: regular rate and rhythm, S1-S2, no murmur, no rubs or gallops, brisk capillary refill, no edema LUNGS: clear to auscultation bilaterally, no coarseness crackles or wheezing, no cough present CHEST: Symmetrical movement, no accessory muscle use, good tidal volume. ABDOMEN: Soft, no distention, no abdominal tenderness, no guarding or peritoneal signs, no organomegaly, no flank or suprapubic tenderness, active bowel tones. BACK: Normal curvature, nontender to palpation, no CVA tenderness on percussion EXTREMITIES: moves all extremities, strength is 5/5 and symmetrical, no defor mities or joint effusions. NEUROLOGIC: AAO x4, cranial nerves II-XII grossly intact, NIH score is 1 for altered sensation left upper arm and left face. Speech is clear but slow. PSYCH: Mildly anxious, good eye contact, linear thought process, cooperative, appropriate with stable behavior Objective Labs Result Diagrams: 12/17/19 21:25 12/17/19 21:25 Labs: Laboratory Results - last 24 hr 12/17/19 12/17/19 12/17/19 21:25 21:25 21:25 WBC 9.8 RBC 5.01 Hgb 14.7 Hct 42.5 MCV 84.8 MCH 29.3 MCHC 34.5 RDW 13.0 Plt Count 180 Neut % (Auto) 62.3 Lymph % (Auto) 28.6 [place] % (Auto) 6.9 Eos % (Auto) 1.9 L Baso % (Auto) 0.3 Neut # (Auto) 6100 Lymph # (Auto) 2800 [place] # (Auto) 700 Eos # (Auto) 200 Baso # (Auto) 0 PT 11.8 INR 1.0 APTT 32 Sodium 139 Potassium 4.3 Chloride 104 Carbon Dioxide 29 BUN 16 Creatinine 1.15 Estimated GFR > 60.0 BUN/Creatinine Ratio 13.9 Glucose 89 Calcium 9.7 Phosphorus COVID-19 PCR 12/17/19 12/17/19 21:25 22:27 WBC RBC Hgb Hct MCV MCH MCHC RDW Plt Count Neut % (Auto) Lymph % (Auto) [place] % (Auto) Eos % (Auto) Baso % (Auto) Neut # (Auto) Lymph # (Auto) [place] # (Auto) Eos # (Auto) Baso # (Auto) PT INR APTT Sodium Potassium Chloride Carbon Dioxide BUN Creatinine Estimated GFR BUN/Creatinine Ratio Glucose Calcium Phosphorus 4.3 COVID-19 PCR Negative Assessment & Plan Assessment & Plan narrative: This is a 34-year-old male has no prior medical history aside from workup for bradycardia who woke this morning with complete numbness of his left upper arm, developing left facial numbness and ataxia with left leg weakness. 1. Possible CVA, acute, present on admission, active. -patient last known normal was last night upon going to bed. He woke up with left arm numbness, proceeded on a 2 mi run, developed cognitive impairments and left facial numbness and left leg weakness. -the patient's case was reviewed by the ER provider was [place] stroke team with no further recommendations beyond standard evaluation -NIH score is 1 time exam for altered sensation leg weakness not in evidence, no aphasia or dysphagia. The patient appears more cognitively alert only speaking was lower earl. -ordered echocardiogram and MRI in the morning. -ordered aspirin 81 mg daily -ordered atorvastatin 20 mg daily -requested PT and OT evaluate and treat. -will obtain hemoglobin A1c, lipid panel and TSH for risk stratification. 2. Sinus bradycardia, present on admission, stable. -patient is athletic inactivity and build. He has undergone full cardiac evaluation with Holter monitor, echocardiogram and stress test reportedly finding ?slightly irregular rhythm with PVCs?. -patient remains hemodynamically stable though his heart rate does drop down into the 40s. -he will remain on telemetry and will obtain echocardiogram in the morning. VTE prophylaxis: SCDs, enoxaparin IV fluid: Saline lock Diet: NPO until swallow screen, heart healthy. Code status: FULL CODE, the patient's helen Jimenez is a surrogate decision maker. The patient is admitted to the hospital due to the severity of his symptoms and for further evaluation. He is admitted as observation status with expected length of stay to be less than 2 midnights. Scores GCS [place] coma scale eye opening: Spontaneous [place] coma scale verbal response: Orientated [place] coma scale motor response: Obey commands [place] coma scale total score: 15 NIHSS Level of Conciousness: Alert, keenly responsive Ask month/age: Answers both questions correctly. Open/close eyes, close hand: Performs both tasks correctly Best gaze horizontal: Normal Visual antunez: No visual loss Facial palsy: Normal symetrical movement Left arm drift: No drift for full 10 sec Right arm drift: No drift for full 10 sec Left leg drift: No drift for full 5 sec Right leg drift: No drift for full 5 sec Limb ataxia: Absent Sensory on face/arms/legs: Mild to moderate sensory loss, can tell touch Best language: No aphasia, normal Dysarthria: Normal Extinction or inattention: No abnormality Total NIH Stroke scale score: 1
--- NOTE | 2019-12-18 04:17 | PC.NURSE ---
12/17 @ 0400 Checked Patient's blood glucose. Patient's blood glucose is 85. Reported to Henna Hernandez RN
[2019-12-18 06:10] LABS: Add Manual Diff / Slide Review NO; Basophils Absolute Auto 0 /uL (0-100); Basophils Percent Auto 0.4 % (0-2); Eosinophils Absolute Auto 300 /uL (0-450); Eosinophils Percent Auto 3.3 % (2-4); Hematocrit 40.2 % (41-53); Lymphocytes Absolute Auto 2400 /uL (1100-4500); Lymphocytes Percent Auto 30.5 % (25-40); Mean Corpuscular HGB Conc 34.8 % (30-36); Mean Corpuscular Hemoglobin 29.3 PG (26-34); Mean Corpuscular Volume 84.3 fL (80-100); Monocytes Absolute Auto 600 /uL (0-900); Monocytes Percent Auto 8.3 % (3-14); Neutrophils Absolute Auto 4500 /uL (1500-7000); Neutrophils Percent Auto 57.5 % (50-75); Platelet Count 155 X10^3/uL (150-400); Red Blood Cell Count 4.77 X10^6/uL (4.5-5.9); Red Cell Distribution Width 12.8 % (11.6-14.8); White Blood Cell Count 7.8 X10^3/uL (4.5-11.0)
[2019-12-18 06:17] LABS: Hemoglobin A1C% w Est Avg Glu 4.9 % (4.0-6.0); Magnesium 2.2 mg/dL (1.6-2.3)
[2019-12-18 06:18] LABS: BUN Creatinine Ratio 17.5 (6-22); Blood Urea Nitrogen 17 mg/dL (9-20); Calcium 9.6 mg/dL (8.4-10.2); Carbon Dioxide 25 mmol/L (22-32); Chloride 106 mmol/L (98-107); Cholesterol 154 mg/dL (140-199); Estimated Glomerular Filt Rate > 60.0 mL/min (>60); Glucose 93 mg/dL (70-100); HDL Cholesterol 36 mg/dL (40-60); HEMOLYSIS < 15 (0-50); LDL Cholesterol Calculated 101 mg/dL (<100); Potassium 4.4 mmol/L (3.4-5.1); Sodium 138 mmol/L (137-145); Triglycerides 83 mg/dL (35-150)
[2019-12-18 07:03] LABS: Thyroid Stimulating Hormone 2.14 uIU/mL (0.47-4.68)
--- NOTE | 2019-12-18 07:20 | DI.ECHO.S_ITS ---
Echocardiogram Report + + :Name: DULCE FAJARDO Study Date: 12/18/2019 Height: 74 in : :[facility] Weight: 240 lb : : Gender: Male BSA: 2.3 m2 : :: 1985 Age: 34 yrs BP: 121/75 mmHg: :Reason For Study: [place] Symptoms : :Ordering Physician: [place] : :Hospitalist Performed By: Tatiana Vasquez : :Referring: STEHPANE MOROCHO : + + Interpretation Summary The left ventricle is normal in size. The ejection fraction is estimated to be 45-50%. There is mild global hypokinesis of the left ventricle. There has been no significant change in LVEF since the previous exam. The right ventricle is normal in size and function. No significant valvular pathology. Procedure: A two-dimensional transthoracic echocardiogram with color flow and Doppler was performed. The study quality was technically adequate. Comparison is made with the echocardiogram of 03/30/2019. A saline contrast injection was performed to assess for cardiac shunting. The injection was performed through an intravenous line in the left arm. The patient was in sinus bradycardia with heart rates between 39-52 bpm during the exam. The patient had occasional PACs during the exam. Left Ventricle: The left ventricle is normal in size. Left ventricular wall thickness is mildly increased. A false chord is noted (normal variant). The ejection fraction is estimated to be 45-50%. There has been no significant change since the previous exam. There is mild global hypokinesis of the left ventricle. Diastolic parameters suggest probable normal left ventricular diastolic function and normal filling pressures. Right Ventricle: The right ventricle is normal in size and function. Atria: Both atria are normal in size. Both atria have significantly decreased in size since the prior echo exam. There is no Doppler evidence for an interatrial shunt. Injection of contrast documented no interatrial shunt. Mitral Valve: The mitral valve is normal in structure and function. There is no mitral regurgitation noted. Aortic Valve: The aortic valve is trileaflet. The aortic valve opens well. There is no aortic valve stenosis. No aortic regurgitation is present. Tricuspid Valve: The tricuspid valve is normal in structure and function. Pulmonary artery pressures cannot be estimated because of the lack of a measurable TR jet velocity but the IVC suggests a CVP of around 3 mmHg. There is a trace or physiologic amount of tricuspid regurgitation. Pulmonic Valve: The pulmonic valve leaflets are thin and pliable; valve motion is normal. There is no pulmonic valvular regurgitation. Great Vessels: The aortic root is normal size. The ascending aorta is mildly enlarged. The IVC is of normal diameter and collapses greater than 50% with a sniff. This suggests a low right atrial pressure of 3 mm Hg. Pericardium/ Pleura There is no pericardial effusion. There is no pleural effusion. MMode/2D Measurements & Calculations LVIDd: 5.4 cm LVOT diam: 2.4 cm LVIDs: 4.0 cm Ao root diam: 3.2 cm FS: 27.4 % asc Aorta Diam: 3.4 cm EPSS: 0.69 cm Ao Arch Diam (Prox Trans): 2.9 cm IVSd: 1.1 cm LVPWd: 1.1 cm LV zhao. diameter/BSA (cm/m^2): 2.3 LV sys. diameter/BSA (cm/m^2): 1.7 LA A2 area: 18.2 cm2 RA long axis: 5.4 cm LA A4 area: 18.7 cm2 RA area: 16.4 cm2 LA length (vol): 5.4 cm RA vol: 42.5 ml LA vol: 53.2 ml RA : 18.1 ml/m2 LA vol index: 22.7 ml/m2 IVC diam: 0.95 cm RVD1 (basal): 4.0 cm TAPSE: 2.3 cm Doppler Measurements & Calculations Ao V2 max: 130.3 cm/sec LVOT Max Gabe: 134.6 cm/sec Ao V2 mean: 83.2 cm/sec LV V1 max P.3 mmHg Ao max P.8 mmHg LV V1 VTI: 30.0 cm Ao mean P.4 mmHg BEATRIZ(I,D): 4.2 cm2 Ao V2 VTI: 31.8 cm BEATRIZ(V,D): 4.6 cm2 sev ratio: 0.94 BEATRIZ indexed to BSA (cm^2/m^2): 1.8 MV E max gabe: 80.1 cm/sec PA V2 max: 63.6 cm/sec MV A max gabe: 57.9 cm/sec PA V2 mean: 40.3 cm/sec MV E/A: 1.4 PA mean P.78 mmHg Med Peak E' Gabe: 11.6 cm/sec PA pr(Accel): 27.6 mmHg E/E' med: 6.9 Lat Peak E' Gabe: 16.6 cm/sec E/E' lat: 4.8 E/e' average: 5.9 MV dec time: 0.25 sec SV(LVOT): 132.3 ml Reading Physician:11:32 AM
--- NOTE | 2019-12-18 08:48 | PC.NURSE ---
Addendum entered by Sadaf Ridley R.N. 12/18/19 12:05: Patient back from MRI, Tele back in place. Patient eating and tolerating his lunch well. Fiance sitting up in chair and napping. Original Note: Assess- Patient is A&Ox3, he states that he is still having some l.upper arm numbness and l.upper facial numbness. Speech is normal at this time, his smile is symmetrical. NIH Stroke Scale a 1. Patient is up independently in his room, and his fiance is at bedside and helpful. Patient will go down for an MRI for stroke protocol today, and he already had his Echo. Tolerating breakfast and visiting with S.O.
[2019-12-18] MEDS: ENOXAPARIN 40 MG/0.4 ML SYRINGE SUBCUT (09:35)
[2019-12-18] MEDS: ASPIRIN EC 81 MG TABLET PO (09:35)
--- NOTE | 2019-12-18 11:51 | OT.IP.EVAL ---
Past Medical History (Last Reviewed 12/18/19 @ 05:14 by Carley Begum MD) Bradycardia (Acute) Surgical History (Last Reviewed 12/18/19 @ 05:14 by Carley Begum MD) No pertinent past surgical history (Acute) Occupational Therapy Inpatient Evaluation/Re-Eval M1 PT/OT-IP Prior Functional Status Start: 12/18/19 13:09 Freq: NEEDED Status: Active Protocol: Document 12/18/19 13:09 [facility] (Rec: 12/18/19 13:29 [facility] [id number]) Medical Review Prior Functional Status Medical History Reviewed Yes Communication Independent Mobility and Gait Independent with no devices. Activities of Daily Living and IADL's Independent with all needs including driving and caring for his elderly dog. Social History Household Members significant other Living Arrangements Apartment/Condo Number of Floors (Floors) One Floor Number of Stairs To Enter/Railing? 1 step Home Environment Standard Height Toilet,Tub/ Shower M2 OT-IP Current Condition Start: 12/18/19 13:09 Freq: Status: Active Protocol: Document 12/18/19 13:09 [facility] (Rec: 12/18/19 13:29 [facility] [id number]) Occupational Therapy Current Condition Current Condition Evaluation Date 12/18/19 Treatment Diagnosis Left shoulder numbness Diagnosis Onset Date 12/17/19 Weight Bearing Status Weight Bearing Status Weight Bear as Tolerated M3 OT- IP Subjective and Pain Start: 12/18/19 13:09 Freq: Status: Active Protocol: Document 12/18/19 13:09 [facility] (Rec: 12/18/19 13:29 [facility] [id number]) OT- Subjective Occupational Therapy Visit Type Type Initial Evaluation Visit Start Time 11:38 Visit Stop Time 11:51 Total Visit Minutes 13 Occupational Therapy Visit Comments Patient Comments Pt's friend in the room and pt agreed to get up for OT eval. Patient/Caregiver Goals To go home OT Pain Assessment Pain When Pain Assessed At Rest Pain Present Pain Present Denied Pain M4 OT- IP ADL's Start: 12/18/19 13:09 Freq: Status: Active Protocol: Document 12/18/19 13:09 [facility] (Rec: 12/18/19 13:29 [facility] [id number]) OT FLG-Riam-Vhmnljd Comments OT Self-Feeding Comments Not at meal time. OT ADL-Dressing General Eval Lower Body Dressing Ability Independent Comments OT Dressing Comments Pt independent to doff socks while standing and needing to sit to ifrah his socks. OT ADL-Toileting Comments OT Toileting Comments Pt not having to use the toilet. Pt states has been independently using the toilet on his own in the room. OT ADL-Bathing Comments OT Bathing Comments NOt performed. M5 OT- IP IADL's Start: 12/18/19 13:09 Freq: Status: Active Protocol: Document 12/18/19 13:09 [facility] (Rec: 12/18/19 13:29 [facility] [id number]) OT-Instrumental Activities of Daily Living Home Safety Awareness Awareness of Need for Assistance at Home Good Awareness Ability to Problem Solve Emergency Able to Problem Solve Situations Medication Management Medication Management No Deficits Identified Money Management Money Management No Deficits Identified Meal Preparation Meal Preparation No Deficits Identified Call Center Operations Manager Call Center Operations Manager No Deficits Identified Call Center Operations Manager Comments Pt may need to take extra time to complete to complete tasks initially. M6 OT- IP Functional Cognition Start: 12/18/19 13:09 Freq: Status: Active Protocol: Document 12/18/19 13:09 [facility] (Rec: 12/18/19 13:29 [facility] [id number]) Cognitive Factors Limiting Selfcare Function Cognitive Ability Level of Alertness Alert Patient Orientation Name,Age,Birthday,Month,Date, Year,Day of Week,Place, Situation Attention Span Ability Capable of Focused Attention, Capable of Sustained Attention Ability to Follow Commands Able to Follow Multi-Step Commands Memory Description No Deficits Noted Safety Awareness No Deficits Noted Problem Solving Ability No deficits Noted Executive Function Ability No Deficits Noted Cognitive Comments Cognitive Assessment Comments Pt occasional increased time to answer questions for home safety but appears to be at baseline for cognition with no deficits. Pt's scored 51 seconds on [place] Making B which implies perfect score for assessment which looks at visual attention, executive thinking, mental flexibility, task switching, and speed of processing. OT- Vision and Hearing OT- Hearing Assessment OT- Hearing Assessment WFL OT- Vision Assessment Visual Acuity WFL M7 OT- IP Mobility and Balance Start: 12/18/19 13:09 Freq: Status: Active Protocol: Document 12/18/19 13:09 [facility] (Rec: 12/18/19 13:29 [facility] [id number]) OT- Bed Mobility Assessment Rolling Type of Rolling Roll to Right Level of Assistance Independent Supine to Sit Supine to Sit Assist Independent Sit to Supine Sit to Supine Assist Independent OT-Transfer Assessment Sit to and From Stand Sit to and from Stand Independent Transfers Transfer Ability Independent Technique Transfer Destination Bed Comments Mobility Comments Independent in the room and also able to bend down to roller picker item from the floor with good safety. OT- Gait Assessment Gait Gait Assistance Required: Independent OT- Balance Assessment Sitting Balance and Reactions Static Sitting Balance Ability Normal Dynamic Sitting Balance Ability Normal Standing Balance and Reactions Static Standing Balance Ability Normal Dynamic Standing Balance Ability Good M8 OT- IP Objective Assessments Start: 12/18/19 13:09 Freq: Status: Active Protocol: Document 12/18/19 13:09 [facility] (Rec: 12/18/19 13:29 [facility] [id number]) OT Gross Range of Motion Upper Extremity Range of Motion Assessment Within Functional Limits OT Strength Upper Extremity Strength Assessment Within Functional Limits OT- Coordination Assessment Upper Extremity Finger to Nose Test Within Functional Limits OT-Muscle Tone Assessment Muscle Tone WNL Yes M9 OT- IP Assessment and Plan Start: 12/18/19 13:09 Freq: Status: Active Protocol: Document 12/18/19 13:09 [facility] (Rec: 12/18/19 13:29 [facility] [id number]) OT Summary Assessment and Plan Potential Rehabilitation Potential Good Analytic Complexity at Evaluation Low Summary Progress Towards Goals Progressing Toward Goals Assessment Summary Pt low complexity and here for LUE and facial weakness which per pt appears to be mostly resolved.Pt is independent in the room for all Adl and functional mobility without a device and no deficits noted for BUE except for slight numbness to left shoulder. Pt intact for sensation, proprioception, kinesthesia, and for his cognitive abilities . Suggest when stable to go home. Goals Bathing Goal Independent Shower Transfer Goal Independent Days to Meet Goals 1 Frequency of Treatment Frequency Of Treatment Once a Day Treatment Plan OT Treatment Plan Patient/Family Education Other Treatment Recommendations and Next Shower if still here. Treatment Focus Discharge Recommendations OT Discharge Recommendations Home Transportation Needs at Discharge Private Vehicle
--- NOTE | 2019-12-18 15:21 | CM.DANOTE ---
Addendum entered by Josselin Garcia LPN 12/18/19 15:49: hospitalist team. Payer: [facility] PCP: pt explains he is just out of the [employer] and has signed up at the [facility] clinic but has not yet needed to see a provider. Pt admitted with s/s of possible TIA/CVA and rule out has been in place. Admission status: OBS thus far: confirmed by UR RN Roberto. Pt states he is hopeful that he will be able to dc home today. His fiance has been at bedside, will take him home at d/c. MRI results are still pending. OT Avani has worked with him and deemed his stable for home setting from OT perspective. Original Note: Discharge Planning/Care Management DCP: assessment: case received, EMR reviewed and went to room with intent to see pt during Team Bedside Rounds. Pt was out of room to MRI. Dr. Brar stated that diagnosis was in process and that ECHO was also planned. PT/OT ordered. Met now in followup: introduced self and role. Pt is a 34 year old male who admitted early this mornin:09 to care of CM Discharge Assessment Start: 12/18/19 15:19 Freq: Status: Active Protocol: Document 12/18/19 15:19 ITV (Rec: 12/18/19 15:20 ITV [id number]) Discharge Planning Assessment Advance Directives? No Advance Directives on File No History Provided By Patient,Medical Record Has Patient been admitted in last 30 No days? Prior Living Arrangements Apartment/Condo Household Members significant other Comment Barbara cervantes [phone] Document 12/18/19 15:20 ITV (Rec: 12/18/19 15:21 ITV [id number]) Discharge Planning Assessment Advance Directives? No Advance Directives on File No History Provided By Patient,Medical Record Has Patient been admitted in last 30 No days? Prior Living Arrangements Apartment/Condo Household Members significant other Comment Barbara cervantes [phone] Independent with ADL's Yes Is patient alert and oriented? Yes
--- NOTE | 2019-12-18 15:55 | PT.IIE ---
Surgical History (Last Reviewed 12/18/19 @ 05:14 by Carley Begum MD) No pertinent past surgical history (Acute) Medical History (Last Reviewed 12/18/19 @ 05:14 by Carley Begum MD) Bradycardia (Acute) Physical Therapy Inpatient Evaluation/Re-Eval M1 PT/OT-IP Prior Functional Status Start: 12/18/19 13:09 Freq: NEEDED Status: Active Protocol: Document 12/18/19 15:41 AW (Rec: 12/18/19 15:55 AW [id number]) Medical Review Prior Functional Status Medical History Reviewed Yes Communication Independent Mobility and Gait Independent with no devices. Activities of Daily Living and IADL's Independent with all needs including driving and caring for his elderly dog. Social History Household Members significant other Living Arrangements Apartment/Condo Number of Floors (Floors) One Floor Number of Stairs To Enter/Railing? level entrance Home Environment Tub/Shower Employment Status Student Additional Social History Comment Pt is a student at [employer]. His fiancee is active duty in the [employer]. M2 PT-IP Current Condition Start: 12/18/19 13:19 Freq: NEEDED Status: Active Protocol: Document 12/18/19 15:41 AW (Rec: 12/18/19 15:55 AW [id number]) Physical Therapy Current Condition Current Condition Evaluation Date 12/18/19 Treatment Diagnosis left-sided numbness, confusion , ataxia Onset Date 12/17/19 M3 PT-IP Subjective Start: 12/18/19 13:19 Freq: NEEDED Status: Active Protocol: Document 12/18/19 15:41 AW (Rec: 12/18/19 15:55 AW [id number]) Subjective Physical Therapy Visit Type Type Initial Evaluation Visit Start Time 13:57 Visit Stop Time 14:11 Total Visit Minutes 14 Physical Therapy Visit Comments Patient Comments Pt willing to participate with PT Therapy Pain Assessment Pain When Pain Assessed At Rest Pain Present Pain Present Denied Pain M4 PT-IP Mobility and Gait Start: 12/18/19 13:19 Freq: NEEDED Status: Active Protocol: Document 12/18/19 15:41 AW (Rec: 12/18/19 15:55 AW [id number]) PT-Bed Mobility Assessment Supine to Sit Supine to Sit Independent Sit to Supine Sit to Supine Independent Scooting Scooting to Edge of Bed Independent Scooting Up and Down in Bed Independent PT-Transfer Assessment Sit to and From Stand Sit to and from Stand Independent Equipment Transfer Assistive Device None Transfers Transfer Destination Bed Transfer Technique pt ambulated IND Transfer Ability Level of Assist Independent Comments Mobility Comments Pt completed all mobility IND without evidence of imbalance. Gait Assessment Gait Gait Assistance Required: Independent Distance (Feet) 200 Assistive Devices Assistive Device None Gait Deviations General Gait Pattern Within Normal Limits Comments Gait Comments Pt completed 4-item DGI with score of 12/12. No evidence of unsteadiness or path deviation. Stair Climbing Assessment Comments Stair Climbing Comments Not assessed. PT-Balance Assessment Sitting Balance and Reactions Static Sitting Balance Ability Normal Dynamic Sitting Balance Ability Normal Standing Balance and Reactions Static Standing Balance Ability Normal Dynamic Standing Balance Ability Normal Comments Other Balance Tests/Deviations/Treatment Pt able to withstand max : multidirectional balance challenge in standing. M5 PT-IP Objective Assessments Start: 12/18/19 13:19 Freq: NEEDED Status: Active Protocol: Document 12/18/19 15:41 AW (Rec: 12/18/19 15:55 AW [id number]) Orientation Orientation/Cognition Level of Alertness Alert Orientation Name,Day of Week,Place, Situation Language Function Ability No Deficits Noted Safety Awareness Understands Safety Issues Memory Description No Deficits Noted Comments Pt able to recall three words after five minutes conversational distraction. Gross Range of Motion Lower Extremity ROM Assessment Within Functional Limits Strength Lower Extremity Strength Assessment Within Functional Limits Comments Strength Comments Strength was symmetrical and grossly 4+/5 to 5/5 Coordination Assessment Gross Coordination Gross Coordination WNL Assessment Finger to Nose Test Normal Performance Pronation/Supination Test Normal Performance Heel on Escobar Test Normal Performance Sensation Assessment Sensation Gross Sensation Left UE Impaired Light Touch Impaired Sensation Description Numbness Comments Sensation Comments Pt continues to endorse lateral right arm numbness from shoulder to elbow. Muscle Tone Muscle Tone WNL Yes Comments Muscle Tone Comments No ankle clonus bilaterally Other Assessments Other Other Assessments Occulomotor and vestibular exam normal. M6 PT-IP Treatment Start: 12/18/19 13:19 Freq: NEEDED Status: Active Protocol: Document 12/18/19 15:41 AW (Rec: 12/18/19 15:55 AW [id number]) Physical Therapy Treatment Education Education Provided Safety Other Treatments Other Treatment Performed Provided education on signs and symptoms of CVA with pt and his fiancee verbalizing understanding of the need for fast presentation to ER if noted. M7 PT-IP Assessment and Plan Start: 12/18/19 13:19 Freq: NEEDED Status: Active Protocol: Document 12/18/19 15:41 AW (Rec: 12/18/19 15:55 AW [id number]) PT Summary Assessment and Plan Summary Assessment Summary Jignesh is a 34 yo man admitted with L arm and face numbness. At time of evaluation, MRI report was not available. Pt is independent at baseline and presents on evaluation as independent in all regards. Cranial nerves were grossly intact, speech content was normal though earl was mildly slow compared with normal. Pt was advised to have a friend check on him multiple times per day over the coming weeks as a backstop for safety. Pt has no identifiable mobility impairments for acute PT at this time. PT will discharge this patient but remains available for re-consult if condition changes. Frequency of Treatment Frequency Of Treatment Discharge Recommendations To Nursing Amount of Assist Needed Independent Discharge Recommendations PT Discharge Recommendations Home with Assistance Transportation Needs at Discharge Private Vehicle
[2019-12-18] MEDS: ACETAMINOPHEN 325 MG TABLET 650 MG PO (16:53)
--- NOTE | 2019-12-18 17:04 | ST.IPIE ---
Visit Care Team Role Provider Type Carley Begum MD Emergency Provider Physician Referring Provider Specialty: Emergency Medicine Address: [address] [place] [address], [id number] Email: DAVID Sidhu Admit Provider Physician Attending Provider Specialty: Internal Medicine Address: [address] [place] [address], [id number] Email: [email or web address] Past Medical History (Last Reviewed 12/18/19 @ 05:14 by Carley Begum MD) Bradycardia (Acute Medical) ST IP Initial Evaluation Report [facility]TER Language Evaluation Start: 12/18/19 16:49 Freq: Status: Active Protocol: Document 12/18/19 16:50 LOLI (Rec: 12/18/19 17:04 LOLI [id number]) Language Evaluation Session Time Visit Start Time 09:55 Visit Stop Time 10:20 Total Visit Minutes 25 Visit Information Visit Number Initial Evaluation Next Note Type Next Note Type Treatment Note Referral Referring Physician DAVID Sidhu Reason for Referral Possible CVA Language Evaluation Assessment Type Speech/Language Past Medical History Patient History Per H&P: This is a 34-year-old male has no prior medical history aside from workup for bradycardia who woke this morning with complete numbness of his left upper arm, developing left facial numbness and ataxia with left leg weakness. The pt was reported and was observed to have intermittent difficulty with speech production, at times markedly slowed and effortful, as well as word recall difficulties. Hearing Hearing Level Normal Vision Vision Status Not Impaired Subjective Subjective The pt was awake in bed visiting with his fiance who was at bedside and present throughout the evaluation. The pt was able to retell events leading to hospitalization. He stated his speech has improved and, although there are still times when it feels slow and effortful, it is faster even at those times. His fiance stated, Right now it sounds back to normal to me . - Informal Assessment Receptive Language Normal Yes Expressive Language Normal Yes Articulation Normal Yes Assessment Findings Expressive/Receptive Language: The pt demonstrated language skills WNL in spontaneous conversation and evaluative tasks including yes/no questions, following 2- and 3- step directions, confrontational naming, automatic speech tasks, and reading words, phrases, and sentences. Motor Speech: The pt was 100% intelligible throughout the evaluation. He exhibited occasional decline in rate of speech, about which he commented that he felt self- conscious with medical personnel and was choosing his words carefully because I don't want more tests. Overall, rate of speech was WNL. The pt did not exhibit s/ sx of dysarthria or apraxia of speech. He performed diadochokinetic tasks WNL. Education was provided to the pt orally and in writing RE strategies to maintain/ increase speech intelligibility at times when he feels his speech is slowed or effortful, as well as word recall strategies. He was encouraged to inform his MD following hospital discharge if symptoms continued or worsened in order to seek referral for outpatient care. The pt verbalized agreement and all questions were answered. Recommendations The pt presents with speech and language WNL. No speech/ language therapy is warranted at this time. Recommend d/c home when medically stable. If symptoms return or persist, outpatient therapy is recommended for re-evaluation and treatment as indicated. - Receptive Language - Expressive Language -
--- NOTE | 2019-12-18 17:21 | CM.DANOTE ---
Patient was d/c and escorted to personal vehicle with Fiance in tow. D/c packet was reviewed with patient and Sig. other at bedside. All questions and concerns were addressed and answered by patient and SO. IV was d/c and tele was removed, patient tolerated well. Patient left in stable condition.
== END 2019-12-18 17:15 | disposition home or self-care (01) ==
LOC: ED 21:00 → AC 12-18 00:10
PROVIDERS: Admitting Provider Nurse Practitioner Adult Health; Emergency Provider Emergency Medicine; Referring Provider Emergency Medicine; Visit Provider Nurse Practitioner Adult Health
DX: R29.818 Other symptoms and signs involving the nervous system (principal); R20.0 Anesthesia of skin; R00.1 Bradycardia, unspecified; Z11.59 Encounter for screening for other viral diseases
CPT/HCPCS: 36415; 70450; 70496; 70498; 70548; 70553; 80048; 80061; 81003; 83036; 83735; 84100; 84443; 85025; 85610; 85730; 87635; 92523; 93005; 93306; 94762; 96360; 96361; 96372; 97161; 97165; 99285; G0378; J1650; Q9967

== ENCOUNTER → 2020-01-17 15:41 | Outpatient (CLI) | payer OTHER, SELFPAY ==
[2019-12-18 01:25] VITALS: BMI 30.8
--- NOTE | 2020-01-17 15:43 | DI.ECHO.S_ITS ---
[place] +---------+ Hospital +---------+ : : [address] : : : : [id number] : : : : Phone: [phone]---------+ Echocardiogram Report + + :Name: DULCE FAJARDO Study Date: 01/17/2020 Height: 74 in : :[facility] Weight: 240 lb : : Gender: Male BSA: 2.3 m2 : :: 1985 Age: 34 yrs BP: 125/84 mmHg: :Reason For Study: TACHYCARDIA : : Performed By: Tatiana Vasquez : :Referring: JANES FOSS : + + Interpretation Summary The left ventricle is normal in size. Left ventricular systolic function is normal without focal wall motion abnormalities. Left ventricular global longitudinal strain average is 17.5%. Left ventricular ejection fraction is estimated to be 55%. LVEF has not significantly changed. The right ventricle is normal in size and function. Both atria are normal in size. There is no significant valvular heart disease. The aortic root is normal size. Procedure: A two-dimensional transthoracic echocardiogram with color flow and Doppler was performed. The study quality was technically adequate. There is no prior echocardiogram noted for this patient. The patient was in sinus bradycardia with heart rates between 44-65 bpm during the exam. The patient had frequent PACs during the exam. Left Ventricle: The left ventricle is normal in size. Left ventricular wall thickness is borderline increased. A false chord is noted (normal variant). Left ventricular systolic function is normal without focal wall motion abnormalities. Left ventricular global longitudinal strain average is 17.5%. Left ventricular ejection fraction is estimated to be 55%. Diastolic parameters suggest probable normal left ventricular diastolic function and normal filling pressures. Right Ventricle: The right ventricle is normal in size and function. Atria: Both atria are normal in size. There is no Doppler evidence for an interatrial shunt. Mitral Valve: The mitral valve is normal in structure and function. There is no mitral regurgitation noted. Aortic Valve: The aortic valve is trileaflet. The aortic valve opens well. There is no aortic valve stenosis. No aortic regurgitation is present. Tricuspid Valve: The tricuspid valve is normal in structure and function. Pulmonary artery pressures cannot be estimated because of the lack of a measurable TR jet velocity but the IVC suggests a CVP of around 3 mmHg. There is a trace or physiologic amount of tricuspid regurgitation. Pulmonic Valve: The pulmonic valve is not well seen, but is grossly normal. There is a trace or physiologic amount of pulmonic regurgitation. There is no significant valvular heart disease. Great Vessels: The aortic root is normal size. The ascending aorta is normal in size. The IVC is of normal diameter and collapses greater than 50% with a sniff. This suggests a low right atrial pressure of 3 mm Hg. Pericardium/ Pleura There is no pericardial effusion. There is no pleural effusion. MMode/2D Measurements & Calculations LVIDd: 5.5 cm LVOT diam: 3.0 cm LVIDs: 3.8 cm Ao root diam: 3.4 cm FS: 31.3 % asc Aorta Diam: 3.3 cm EPSS: 0.89 cm Ao Arch Diam (Prox Trans): 3.2 cm IVSd: 0.90 cm LVPWd: 1.1 cm LV zhao. diameter/BSA (cm/m^2): 2.3 LV sys. diameter/BSA (cm/m^2): 1.6 LA A2 area: 21.2 cm2 RA long axis: 5.0 cm LA A4 area: 18.3 cm2 RA area: 16.8 cm2 LA length (vol): 5.1 cm RA vol: 47.5 ml LA vol: 65.0 ml RA : 20.2 ml/m2 LA vol index: 27.7 ml/m2 IVC diam: 1.6 cm RVD1 (basal): 4.2 cm TAPSE: 2.5 cm Doppler Measurements & Calculations Ao V2 max: 162.9 cm/sec LVOT Max Gabe: 142.4 cm/sec Ao V2 mean: 99.8 cm/sec LV V1 max P.1 mmHg Ao max P.6 mmHg LV V1 VTI: 26.3 cm Ao mean P.8 mmHg BEATRIZ(I,D): 6.5 cm2 Ao V2 VTI: 29.4 cm BEATRIZ(V,D): 6.3 cm2 sev ratio: 0.89 BEATRIZ indexed to BSA (cm^2/m^2): 2.8 MV E max gabe: 84.1 cm/sec PA V2 max: 85.3 cm/sec MV A max gabe: 59.8 cm/sec PA V2 mean: 55.7 cm/sec MV E/A: 1.4 PA mean P.5 mmHg Med Peak E' Gabe: 10.7 cm/sec PA pr(Accel): 1.9 mmHg E/E' med: 7.9 Lat Peak E' Gabe: 13.5 cm/sec E/E' lat: 6.2 E/e' average: 7.0 MV dec time: 0.26 sec SV(OT): 190.6 ml Reading Physician:05:09 PM
== END ==
PROVIDERS: Referring Provider Physician Assistant; Visit Provider Physician Assistant
DX: I47.1 Supraventricular tachycardia (principal)
CPT/HCPCS: 93306

== ENCOUNTER 2020-02-14 09:31 | Emergency (ER) | payer OTHER, SELFPAY ==
[2019-12-18 01:25] VITALS: BMI 30.8
[2020-02-14 09:47] VITALS: BP 122/70; PULSE 108; RESP 18; TEMP 37; O2SAT 97; BMI 30.8
--- NOTE | 2020-02-14 09:55 | ED.URI ---
HPI - URI/Sore Throat General Chief Complaint: Upper Respiratory Symptoms Stated Complaint: achey,hard time breathing Time Seen by Provider: 02/14/20 09:37 Source: patient Mode of arrival: Ambulatory Limitations: no limitations History of Present Illness HPI Narrative: The patient is a 34-year-old male with history of TIA presenting with body aches and shortness of breath. He recently traveled to [place] on February 01 and returned on . About 6 days ago he started having calf pain and body aches. Last night he experienced extreme short of breath and feels like he cannot breathe with minimal exertion. He has body aches all over no fever sore throat change in taste or smell. He denies any productive cough or orthopnea. Related Data Allergies Allergy/AdvReac Type Severity Reaction Status Date / Time No Known Drug Allergies Allergy Verified 12/17/19 18:25 Review of Systems Review of Systems ROS Unobtainable: All systems reviewed & are unremarkable except as noted in HPI and below Constitutional Constitutional: Reports body ache(s), Denies chills, Reports fatigue, Denies fever(s), Denies frequent falls and Denies headache(s) Eyes Eyes: Denies change in vision, Denies eye discharge, Denies irritation and Denies loss of vision ENT Ears, Nose, Mouth, and Throat: Denies headache(s) Cardiovascular Cardiovascular: Denies chest pain, Denies irregular heart rhythm, Denies lightheadedness, Denies palpitations, Reports dyspnea, Reports dyspnea on exertion and Denies orthopnea Respiratory Respiratory: Reports as per HPI, Denies cough, Reports dyspnea, Reports dyspnea on exertion and Denies wheezing Gastrointestinal Gastrointestinal: Denies abdominal pain, Denies change in bowel habits, Denies diarrhea, Denies nausea and Denies vomiting Genitourinary Genitourinary: Denies dysuria Genitourinary: Denies dysuria Musculoskeletal Musculoskeletal: Denies back pain and Reports myalgias Integumentary/Breasts Skin/Breast: Denies pruritus, Denies erythema, Denies rash and Denies wounds Neurologic Neurologic: Denies frequent falls, Denies headache(s) and Denies loss of vision Endocrine Endocrine: Reports fatigue and Denies palpitations Allergic/Immunologic Allergic/Immunologic: Denies wheezing Patient History Medical History Bradycardia (Acute) TIA (transient ischemic attack) (Acute) Surgical History No pertinent past surgical history (Acute) Social History household members: significant other Smoking Status: Former smoker alcohol intake: current substance use type: does not use Smoking Status: Former smoker alcohol intake frequency: holidays/special occasions only Substance Use Type: marijuana Exam Initial Vital Signs Initial Vital Signs: Vital Signs Temperature 98.6 F 02/14/20 09:47 Pulse Rate 108 H 02/14/20 09:47 Respiratory Rate 18 02/14/20 09:47 Blood Pressure 122/70 02/14/20 09:47 Pulse Oximetry 97 02/14/20 09:47 GENERAL: [Well-appearing, well-nourished] and in [no acute] distress. HEENT: Head atraumatic,EOMI, pupils reactive, face symmetric, [moist] mucous membranes CARDIOVASCULAR: Regular rate and rhythm without murmurs, rubs or gallops. RESPIRATORY: Breath sounds equal bilaterally, no wheezes rales or rhonchi. ABDOMEN: Soft, nontender. Normoactive bowel sounds all 4 quadrants. No guarding or rebound. EXTREMITIES: Normal range of motion, no clubbing or edema. Neurovascularly intact. Painful calves bilaterally but no swelling NEUROLOGICAL: Alert and oriented x4.Normal gait and speech. Cranial nerves II through XII grossly intact. SKIN: Warm, dry, no laceration, no petechiae, no rashes or lesions. Scores PERC Score Age greater than or equal to 50 years: No Heart rate greater than or equal to 100 bpm: Yes Room Air O2 Sat less than 95%: No Unilateral leg swelling: No Recent trauma or surgery: No Hemoptysis: No Prior PE or DVT: No Hormone Use: No Total PERC Score: 1 Course Orders Ordered: ED Orders 02/14/20 09:40 COVID19 -ED/INPAT/OR/L&D Stat 02/14/20 10:08 XR chest 1V Stat EKG-12 Lead Stat 02/14/20 10:29 C-Reactive Protein Quant Stat Complete Blood Count AUTO DIFF Stat Comprehensive Metabolic Panel Stat D Dimer Stat Ferritin Stat Lactate Dehydrogenase Stat NT-proBNP (BNP-Adult 18+) Stat Procalcitonin Stat Troponin & CK Cardiac Panel Stat Discontinued Medications Albuterol (Ventolin Hfa Prepack) 1 box MISC SEEINSTR ONE Stop: 02/14/20 11:30 Last Admin: 02/14/20 11:37 Dose: 1 box Documented by: NICANOR Vital Signs Vital signs: Vital Signs - 8 hr 02/14/20 12:03 Pulse Rate 96 H Respiratory Rate 18 Blood Pressure 111/65 Pulse Oximetry 97 MDM - URI/Sore Throat Lab Data Attestation: I reviewed the patient's lab results. Result diagrams: 02/14/20 10:29 02/14/20 10:29 Labs: Lab Results 02/14/20 02/14/20 02/14/20 Range/Units 09:40 10:29 10:29 WBC (4.5-11.0) X10^3/uL RBC (4.5-5.9) X10^6/uL Hgb (13.5-17.5) g/dL Hct (41-53) % MCV (80-100) fL MCH (26-34) PG MCHC (30-36) % RDW (11.6-14.8) % Plt Count (150-400) X10^3/uL Neut % (Auto) (50-75) % Lymph % (Auto) (25-40) % [place] % (Auto) (3-14) % Eos % (Auto) (2-4) % Baso % (Auto) (0-2) % Neut # (Auto) (2478-1163) /uL Lymph # (Auto) (2647-1163) /uL [place] # (Auto) (0-900) /uL Eos # (Auto) (0-450) /uL Baso # (Auto) (0-100) /uL D-Dimer < 200 (<230) ng/mL Sodium (137-145) mmol/L Potassium (3.4-5.1) mmol/L Chloride (98-107) mmol/L Carbon Dioxide (22-32) mmol/L BUN (9-20) mg/dL Creatinine (0.66-1.25) mg/dL Estimated GFR (>60) mL/min BUN/Creatinine Ratio (6-22) Glucose (70-100) mg/dL Calcium (8.4-10.2) mg/dL Ferritin (18-464) ng/mL Total Bilirubin (0.2-1.3) mg/dL AST (17-59) IU/L ALT (<50) IU/L Alkaline Phosphatase (38-126) U/L Lactate Dehydrogenase (313-618) U/L Total Creatine Kinase (55-170) U/L CK-MB (CK-2) CK-MB (CK-2) Rel Index Troponin I (0.01-0.034) ng/mL C-Reactive Protein (<1.0) mg/dL NT-Pro-B Natriuret Pep (<125) pg/mL Total Protein (6.3-8.2) g/dL Albumin (3.5-5.0) g/dL Globulin (1.7-4.1) g/dL Albumin/Globulin Ratio (1.0-2.8) Procalcitonin < 0.05 (<0.5) ng/mL COVID-19 PCR Negative (Negative) 02/14/20 02/14/20 Range/Units 10:29 10:29 WBC 15.2 H (4.5-11.0) X10^3/uL RBC 5.03 (4.5-5.9) X10^6/uL Hgb 14.5 (13.5-17.5) g/dL Hct 42.5 (41-53) % MCV 84.3 (80-100) fL MCH 28.9 (26-34) PG MCHC 34.3 (30-36) % RDW 12.9 (11.6-14.8) % Plt Count 140 L (150-400) X10^3/uL Neut % (Auto) 90.5 H (50-75) % Lymph % (Auto) 4.5 L (25-40) % [place] % (Auto) 4.4 (3-14) % Eos % (Auto) 0.4 L (2-4) % Baso % (Auto) 0.2 (0-2) % Neut # (Auto) 72395 H (6004-7600) /uL Lymph # (Auto) 700 L (6465-7481) /uL [place] # (Auto) 700 (0-900) /uL Eos # (Auto) 100 (0-450) /uL Baso # (Auto) 0 (0-100) /uL D-Dimer (<230) ng/mL Sodium 138 (137-145) mmol/L Potassium 4.0 (3.4-5.1) mmol/L Chloride 102 (98-107) mmol/L Carbon Dioxide 27 (22-32) mmol/L BUN 16 (9-20) mg/dL Creatinine 0.91 (0.66-1.25) mg/dL Estimated GFR > 60.0 (>60) mL/min BUN/Creatinine Ratio 17.6 (6-22) Glucose 104 H (70-100) mg/dL Calcium 9.4 (8.4-10.2) mg/dL Ferritin 125 (18-464) ng/mL Total Bilirubin 2.0 H (0.2-1.3) mg/dL AST 26 (17-59) IU/L ALT 27 (<50) IU/L Alkaline Phosphatase 62 (38-126) U/L Lactate Dehydrogenase 368 (313-618) U/L Total Creatine Kinase 95 (55-170) U/L CK-MB (CK-2) TNP CK-MB (CK-2) Rel Index TNP Troponin I < 0.012 (0.01-0.034) ng/mL C-Reactive Protein 1.3 H (<1.0) mg/dL NT-Pro-B Natriuret Pep 28 (<125) pg/mL Total Protein 7.6 (6.3-8.2) g/dL Albumin 4.4 (3.5-5.0) g/dL Globulin 3.2 (1.7-4.1) g/dL Albumin/Globulin Ratio 1.4 (1.0-2.8) Procalcitonin (<0.5) ng/mL COVID-19 PCR (Negative) Imaging Data Chest x-ray: Radiologist's Impression: PROCEDURE: XR CHEST 1V INDICATIONS: flu-like symptoms TECHNIQUE: One view of the chest was acquired. COMPARISON: [facility], , XR CHEST 1V, 02/20/2019, 19:50. FINDINGS: Surgical changes and devices: None. Lungs and pleura: Lungs are clear. No pleural effusions or pneumothorax. Mediastinum: Mediastinal contours appear normal. Heart size is normal. Bones and chest wall: No suspicious bony lesions. Overlying soft tissues appear unremarkable. IMPRESSION: No acute cardiopulmonary abnormality. Dictated by: Jamaal Major M.D. on 02/14/2020 at 10:23 Approved by: Jamaal Major M.D. on 02/14/2020 at 10:24 ECG Data Attestation: I personally reviewed and interpreted this ECG as follows: Prior ECG tracings: available for review Interpretation: Normal sinus rhythm rate 96 p.r. interval 242 QRS [address] changes MDM Narrative Medical decision making narrative: The patient COVID-19 is negative D-dimer is negative this is unlikely a PE. He actually got better with albuterol. There is a lot of smoke in the air these days this is likely some sort of reactive airway disease. At this time I recommend albuterol as needed no antibiotics are indicated. Discharge Plan Departure Patient Disposition: Home Clinical Impression: Acute viral syndrome Discharge Date/Time: 02/14/20 12:05 Instructions: DI for Viral Upper Respiratory Infection -- Adult Activity Restrictions/Additional Instructions: *You have been diagnosed with upper respiratory infection *What to do: At this time COVID-19 is negative blood work is overall reassuring no need for antibiotics. *Continue to take medications as directed Albuterol 1-2 puffs every 4 hours if needed for shortness of breaths *Follow up with your primary care provider in 2-3 days *Return to ER if you should have no relief with albuterol, worsening shortness of breath, or any new, worsening or concerning symptoms
--- NOTE | 2020-02-14 10:08 | DI.RAD.S_ITS ---
PROCEDURE: XR CHEST 1V INDICATIONS: flu-like symptoms TECHNIQUE: One view of the chest was acquired. COMPARISON: [facility], CR, XR CHEST 1V, 02/20/2019, 19:50. FINDINGS: Surgical changes and devices: None. Lungs and pleura: Lungs are clear. No pleural effusions or pneumothorax. Mediastinum: Mediastinal contours appear normal. Heart size is normal. Bones and chest wall: No suspicious bony lesions. Overlying soft tissues appear unremarkable. IMPRESSION: No acute cardiopulmonary abnormality. Dictated by: Jamaal Major M.D. on 02/14/2020 at 10:23 Approved by: Jamaal Major M.D. on 02/14/2020 at 10:24
[2020-02-14 10:17] LABS: COVID19 -Nasal RAPID Negative (Negative)
[2020-02-14 10:39] LABS: Add Manual Diff / Slide Review NO; Basophils Absolute Auto 0 /uL (0-100); Basophils Percent Auto 0.2 % (0-2); Eosinophils Absolute Auto 100 /uL (0-450); Eosinophils Percent Auto 0.4 % (2-4); Hematocrit 42.5 % (41-53); Hemoglobin 14.5 g/dL (13.5-17.5); Lymphocytes Absolute Auto 700 /uL (1100-4500); Lymphocytes Percent Auto 4.5 % (25-40); Mean Corpuscular HGB Conc 34.3 % (30-36); Mean Corpuscular Hemoglobin 28.9 PG (26-34); Mean Corpuscular Volume 84.3 fL (80-100); Monocytes Absolute Auto 700 /uL (0-900); Monocytes Percent Auto 4.4 % (3-14); Neutrophils Absolute Auto 13800 /uL (1500-7000); Neutrophils Percent Auto 90.5 % (50-75); Platelet Count 140 X10^3/uL (150-400); Red Blood Cell Count 5.03 X10^6/uL (4.5-5.9); Red Cell Distribution Width 12.9 % (11.6-14.8); White Blood Cell Count 15.2 X10^3/uL (4.5-11.0)
[2020-02-14 10:54] LABS: Alanine Aminotransferase 27 IU/L (<50); Albumin 4.4 g/dL (3.5-5.0); Albumin Globulin Ratio 1.4 (1.0-2.8); Alkaline Phosphatase 62 U/L (38-126); Aspartate Aminotransferase 26 IU/L (17-59); BUN Creatinine Ratio 17.6 (6-22); Blood Urea Nitrogen 16 mg/dL (9-20); Calcium 9.4 mg/dL (8.4-10.2); Carbon Dioxide 27 mmol/L (22-32); Chloride 102 mmol/L (98-107); Creatine Kinase 95 U/L (55-170); Estimated Glomerular Filt Rate > 60.0 mL/min (>60); Globulin 3.2 g/dL (1.7-4.1); Glucose 104 mg/dL (70-100); HEMOLYSIS < 15 (0-50); Sodium 138 mmol/L (137-145); Total Protein 7.6 g/dL (6.3-8.2)
[2020-02-14 10:55] LABS: D Dimer < 200 ng/mL (<230)
[2020-02-14 11:06] LABS: NT-proBNP (BNP-Adult 18+) 28 pg/mL (<125); Troponin I < 0.012 ng/mL (0.01-0.034)
[2020-02-14 11:09] LABS: Procalcitonin < 0.05 ng/mL (<0.5)
[2020-02-14 11:16] LABS: C-Reactive Protein Quant 1.3 mg/dL (<1.0); Lactate Dehydrogenase 368 U/L (313-618)
[2020-02-14 11:29] LABS: Ferritin 125 ng/mL (18-464)
[2020-02-14] MEDS: ALBUTEROL HFA PREPACK 1 BOX MISC (11:37)
[2020-02-14 12:03] VITALS: BP 111/65; PULSE 96; RESP 18; O2SAT 97
== END 2020-02-14 12:05 | disposition home or self-care (01) ==
PROVIDERS: Emergency Provider Emergency Medicine
DX: B34.9 Viral infection, unspecified (principal); R06.02 Shortness of breath; R68.89 Other general symptoms and signs
CPT/HCPCS: 36415; 71045; 80053; 82550; 82728; 83615; 83880; 84145; 84484; 85025; 85379; 86140; 87635; 93005; 93010; 99284

== ENCOUNTER 2020-10-06 02:06 | Emergency (ER) | payer OTHER, SELFPAY ==
[2019-12-18 01:25] VITALS: BMI 30.8
[2020-10-06 02:32] VITALS: BP 126/84; PULSE 46; RESP 18; TEMP 36.8; O2SAT 98; BMI 30.8
[2020-10-06 03:01] LABS: COVID19 -Nasal RAPID Negative (Negative)
--- NOTE | 2020-10-06 03:33 | ED.GENADULT ---
HPI - General Adult General Chief complaint: Upper Respiratory Symptoms Stated complaint: has lost sense of taste and smell Time Seen by Provider: 10/06/20 03:27 Source: patient Mode of arrival: Ambulatory Limitations: no limitations History of Present Illness HPI narrative: This is a 35-year-old male who has lost his sense of taste and smell in the last 12 hours. Patient has been vaccinated for COVID. He denies any other medical issues. He denies any other symptoms. He denies any cough cold congestion, chest pain or shortness of breath, no neurologic symptoms. Denies headache, vision changes, no numbness tingling or weakness otherwise. Patient denies any regular medications. Patient does not have any known COVID exposures. Related Data Allergies Allergy/AdvReac Type Severity Reaction Status Date / Time No Known Drug Allergies Allergy Verified 12/17/19 18:25 Review of Systems Review of Systems ROS Unobtainable: All systems reviewed & are unremarkable except as noted in HPI and below Patient History Medical History Bradycardia TIA (transient ischemic attack) Surgical History No pertinent past surgical history Social History household members: significant other Smoking Status: Former smoker alcohol intake: current substance use type: does not use Smoking Status: Former smoker alcohol intake frequency: holidays/special occasions only Substance Use Type: marijuana Exam Narrative Exam Narrative: GENERAL: Alert and oriented x three, well-nourished male in no acute distress. HEENT: Head normocephalic, atraumatic, EOMI, pupils reactive, face symmetric, moist mucous membranes NECK: Supple, full range of motion CARDIOVASCULAR: Regular rate and rhythm without murmurs, rubs or gallops. RESPIRATORY: Breath sounds equal bilaterally, no wheezes rales or rhonchi. ABDOMEN: Soft, nontender. Normoactive bowel sounds all 4 quadrants. No guarding or rebound, rigidity, no mass : No CVA tenderness EXTREMITIES: Normal range of motion, no clubbing or edema. Neurovascularly intact NEUROLOGICAL: Cranial nerves II through XII grossly intact. Moving all extremities SKIN: Warm, dry, no petechiae, no rashes or lesions. Initial Vital Signs Initial Vital Signs: Vital Signs Temperature 98.2 F 10/06/20 02:32 Pulse Rate 46 L 10/06/20 02:32 Respiratory Rate 18 10/06/20 02:32 Blood Pressure 126/84 10/06/20 02:32 Pulse Oximetry 98 10/06/20 02:32 Course Orders Ordered: ED Orders 10/06/20 02:30 COVID19 -Nasal swab/Pre-Proc Stat Vital Signs Vital signs: Vital Signs - 8 hr 10/06/20 02:32 Temperature 98.2 F Pulse Rate 46 L Respiratory Rate 18 Blood Pressure 126/84 Pulse Oximetry 98 Medical Decision Making Lab Data Lab results reviewed: Yes I reviewed the patient's lab results. Labs: Lab Results 10/06/20 Range/Units 02:30 SARS-CoV-2 (PCR) Negative (Negative) MDM Narrative Medical decision making narrative: This is a 35-year-old male with isolated loss of taste and smell. Patient has been vaccinated but we discussed that there is potential that he could have a false-negative test even in light of this. I would recommend him being retested in the next several days. We also discussed that our test that is used is less sensitive but also when tested within the 1st 24 hours of symptoms there is a more likely change to be false negative as well. Return precautions were discussed as well as be some protection measures per patient and family. All questions were answered. Discharge Plan Departure Patient Disposition: Home Clinical Impression: Anosmia Instructions: DI for COVID-19 (Suspected or Confirmed ), COVID-19: Testing and Tracing Activity Restrictions/Additional Instructions: *You have been diagnosed with anosmia. This is a known side effect of COVID. Your initial test here is negative but I would recommend repeat testing as there are few things that cause this. If you wish you may obtain a pulse oximeter for use at home to monitor. Please return to the ER if your pulse oximeter shows an O2 saturation less than 94%. *What to do: * per recommendations from the CDC and the [facility] Department of Health * stay home except to get medical care. Restrict activities outside your home, except for getting medical care. Do not go to work, school, or public areas. Avoid using public transportation, ride sharing, or taxis. * separate yourself from other people in your home. * call ahead before visiting your doctor * Wear a face mask * Cover your coughs and sneezes * Clean your hands often * Avoid sharing household items * Clean all high-touch services every day * Monitor your symptoms and seek prompt medical attention if your illness is worsening, particularly with difficulty in breathing. Discussed continuing home isolation * for individuals with symptoms who are confirmed or suspected cases of COVID-19 and are directed to care for themselves at home, discontinue home isolation under the following conditions: 1. At least 72 hours have passed since recovery, defined as resolution of fever without the use of fever reducing medications, and improvement in respiratory symptoms (cough, shortness of breath) AND, 2. At least 7 days have passed since symptoms 1st appeared Individuals with laboratory confirmed COVID-19 who have not had any symptoms may discontinue home isolation when at least 7 days have passed since the date of their 1st COVID-19 diagnostic test and have had no subsequent illness
== END 2020-10-06 03:49 | disposition home or self-care (01) ==
PROVIDERS: Emergency Provider Emergency Medicine
DX: R43.0 Anosmia (principal); Z20.822 Contact with and (suspected) exposure to COVID-19
CPT/HCPCS: 87635; 99281; 99282; C9803